=== PATIENT | male | born 1935 | race Caucasian/White ===

== ENCOUNTER 2022-03-01 08:33 | Inpatient (IN) | payer MEDICARE ==
[~2022-03-01] VITALS: Ht 167.6 cm; Wt 74.8 kg
[2022-03-01] VITALS (10 sets, daily range): BP systolic 82–112; BP diastolic 34–46
[2022-03-01] MEDS ORDERED: SUCCINYLCHOLINE CHLORIDE 20 MG/ML 10 ML VIAL ONE (08:37)
[2022-03-01] MEDS ORDERED: SODIUM CHLORIDE 0.9% 1,000 ML IV ONE ×2 (08:45→14:45)
[2022-03-01] MEDS ORDERED: MIDAZOLAM HCL 100 MG in SODIUM CHLORIDE 0.9% 180 ML IV PRN (09:00)
[2022-03-01] MEDS ORDERED: FentaNYL CIT 1000MCG/0.9% NACL 100 ML IV PRN (09:00)
[2022-03-01] MEDS ORDERED: LEVOFLOXACIN 500 MG/D5% WATER 100 ML IV ONE (09:15)
[2022-03-01] MEDS ORDERED: PIPERACILLIN/TAZO 3.375 GM/D5W 50 ML IV ONE (09:15)
[2022-03-01 09:22] LABS: ABG BASE EXCESS 8.8 mmol/L (-2.0-3.0); ABG CARBOXYHEMOGLOBIN 1.7 % (0.0-1.5); ABG HCO3 31.7 mmol/L (22.0-26.0); ABG METHEMOGLOBIN 0.3 % (0.0-1.5); ABG OXYGEN CONTENT 9.5 mL/dL (15.0-23.0); ABG OXYGEN SATURATION 98.6 % (95.0-98.0); ABG OXYHEMOGLOBIN 96.6 % (94.0-100.0); ABG PCO2 63 mmHg (35-45); ABG PH 7.352 (7.35-7.450); PO2, ARTERIAL BG 111.6 mmHg (71.0-79.0); SOURCE, BLOOD GAS ARTERIAL; TEMPERATURE, FAHRENHEIT, BG 98.5 FAHREN (96.0-98.6)
[2022-03-01 09:23] LABS: ABG A-A DIFF O2 538.4 mmHg (10-20.0); ABG TOTAL HEMOGLOBIN 6.8 G/dL (12.0-18.0); O2 DEVICE,BLOOD GAS VENTILATOR (ROOM AIR); SITE, BLOOD GAS RT RADIAL; VT, ABG 450 ml
[2022-03-01 09:24] LABS: PEEP,BG 5 cm H2O; SPONTANEOUS VT, BG 516 ml
[2022-03-01 09:33] LABS: COVID AG,FIA SOURCE NASOPHARYNGEAL
[2022-03-01 09:39] LABS: MEAN CORPUSCULAR HEMOGLOBIN 32.6 pg (26.0-34.0); MEAN CORPUSCULAR HGB CONC 32.5 G/dL (31.0-37.0); MEAN CORPUSCULAR VOLUME 100 fL (80-100); RED BLOOD CELL COUNT(AUTO) 1.96 MIL/uL (4.50-5.90); RED CELL DISTRIBUTION WIDTH 20.8 % (11.5-14.5)
[2022-03-01 09:43] LABS: ANION GAP 3 mmol/L (8-16); CALCIUM, TOTAL 7.5 mg/dL (8.8-10.5); CARBON DIOXIDE 37 mmol/L (22-29); CHLORIDE 95 mmol/L (98-107); CREATININE 0.96 mg/dL (0.60-1.30); GLUCOSE,RANDOM 200 mg/dL (70-110); POTASSIUM 4.2 mmol/L (3.5-5.1); SODIUM SERUM 135 mmol/L (136-145); UREA NITROGEN, BLOOD 39 mg/dL (7-18)
[2022-03-01 09:44] LABS: GLOMERULAR FILTR. RATE CALC > 60 mL/min (>60)
[2022-03-01 09:48] LABS: HEMATOCRIT 19.6 % (41-53); HEMOGLOBIN 6.4 g/dL (13.5-17.5)
[2022-03-01 09:49] LABS: ALANINE AMINOTRANSFERASE 20 U/L (12-78); ALBUMIN 1.5 g/dL (3.4-5.0); ALKALINE PHOSPHATASE 67 U/L (46-116); ASPARTATE AMINOTRANSFERASE 22 U/L (15-37); BILIRUBIN,TOTAL 0.7 mg/dL (0.1-1.0)
[2022-03-01 09:52] LABS: LACTIC ACID 1.1 mmol/L (0.4-2.0)
[2022-03-01 09:59] LABS: B-TYPE NATRIURETIC PEPTIDE 592 pg/mL (0-100)
[2022-03-01 10:31] LABS: APPEARANCE,URINE CLEAR (CLEAR); BILIRUBIN,URINE NEGATIVE (NEGATIVE); GLUCOSE, URINE (UA) NEGATIVE (NEGATIVE); KETONES,URINE NEGATIVE (NEGATIVE); LEUKOCYTE ESTERASE ,URINE NEGATIVE (NEGATIVE); NITRATE,URINE NEGATIVE (NEGATIVE); OCCULT BLOOD,URINE NEGATIVE (NEGATIVE); PROTEIN,URINE TRACE mg/dL (NEGATIVE); SPECIFIC GRAVITIY, URINE 1.009 (1.003-1.030); UROBILINOGEN,URINE <=1.0 mg/dL (<=1.0)
[2022-03-01 10:55] LABS: INR 1.1 (0.9-1.1); PROTHROMBIN TIME 11.2 SEC (9.4-11.6)
[2022-03-01] MEDS ORDERED: PHENYLEPHRINE 200 MG/D5%-WATER 250 ML IV PRN (14:00)
[2022-03-01] MEDS ORDERED: SODIUM CHLORIDE 0.9% 500 ML IV ONE ×2 (14:11→16:34)
[2022-03-01 14:19] LABS: PATHOLOGY REVIEW, DIFF YES; PLATELET COUNT (AUTO) 64 K/uL (150-450)
[2022-03-01 14:28] LABS: BAND NEUTROPHILS % (MANUAL) 0 % (0-5)
[2022-03-01] MEDS ORDERED: NOREPINEPHRINE 8 MG/D5%-WATER 250 ML IV ONE (14:28)
[2022-03-01] MEDS: NOREPINEPHRINE 8 MG/D5%-WATER 250 ML IV PRN (14:41)
[2022-03-01] MEDS ORDERED: ZOLPIDEM TARTRATE 5 MG TABLET PO PRN (14:45)
[2022-03-01] MEDS ORDERED: MAGNESIUM HYDROXIDE SUSPENSION 30 ML UDCUP PO PRN (14:45)
[2022-03-01] MEDS ORDERED: BISACODYL 10 MG RECTAL RECTAL SUPPOSITORY PR PRN (14:45)
[2022-03-01] MEDS ORDERED: ONDANSETRON HCL 4 MG/2 ML VIAL IVP PRN (14:45)
[2022-03-01] MEDS: PIPERACILLIN/TAZO 3.375 GM/D5W 50 ML IV SCH ×2 (17:39→21:54)
[2022-03-01] MEDS: HEPARIN SODIUM,PORCINE 5,000 UNITS/ML VIAL SQ SCH (17:41)
[2022-03-01] MEDS ORDERED: VASOPRESSIN 40 UNITS in DEXTROSE 5%-WATER 98 ML IV PRN (21:00)
[2022-03-01] MEDS: DOCUSATE SODIUM 100 MG CAPSULE PO SCH (21:00)
[2022-03-01] MEDS ORDERED: SODIUM CHLORIDE 0.9% 250 ML IV ONE (21:48)
[2022-03-02] VITALS: BP 123/36
[2022-03-02] MEDS: NOREPINEPHRINE 8 MG/D5%-WATER 250 ML IV PRN ×3 (00:21→19:19)
[2022-03-02 04:00] VITALS: BP 114/38
[2022-03-02] MEDS: PIPERACILLIN/TAZO 3.375 GM/D5W 50 ML IV SCH ×4 (04:35→21:12)
[2022-03-02 06:13] LABS: ANION GAP 5 mmol/L (8-16); CALCIUM, TOTAL 7.4 mg/dL (8.8-10.5); CARBON DIOXIDE 34 mmol/L (22-29); CHLORIDE 98 mmol/L (98-107); CREATININE 0.96 mg/dL (0.60-1.30); GLUCOSE,RANDOM 177 mg/dL (70-110); POTASSIUM 3.7 mmol/L (3.5-5.1); SODIUM SERUM 137 mmol/L (136-145); UREA NITROGEN, BLOOD 38 mg/dL (7-18)
[2022-03-02 06:25] LABS: HEMATOCRIT 24.2 % (41-53); HEMOGLOBIN 7.8 g/dL (13.5-17.5); MEAN CORPUSCULAR HEMOGLOBIN 31.2 pg (26.0-34.0); MEAN CORPUSCULAR HGB CONC 32.2 G/dL (31.0-37.0); MEAN CORPUSCULAR VOLUME 97 fL (80-100); PLATELET COUNT (AUTO) 66 K/uL (150-450); RED CELL DISTRIBUTION WIDTH 19.4 % (11.5-14.5)
[2022-03-02 06:26] LABS: GLOMERULAR FILTR. RATE CALC > 60 mL/min (>60)
[2022-03-02 08:00] VITALS: BP 116/36
[2022-03-02] MEDS: HEPARIN SODIUM,PORCINE 5,000 UNITS/ML VIAL SQ SCH ×3 (08:00→15:42)
[2022-03-02] MEDS: DOCUSATE SODIUM 100 MG CAPSULE PO SCH ×2 (08:17→21:11)
[2022-03-02] MEDS: PANTOPRAZOLE SODIUM 40 MG DR TABLET PO SCH (08:17)
[2022-03-02 11:06] LABS: BLASTS, MANUAL % 90 (0-0); LYMPHOCYTES % (MANUAL) 4 % (22-44); SEGMENTED NEUTROPHILS % 6 % (40-70)
[2022-03-02] MEDS ORDERED: SODIUM CHLORIDE 0.9% 250 ML IV ONE (11:12)
[2022-03-02 11:25] LABS: BAND NEUTROPHILS % (MANUAL) 4 % (0-5); BLASTS, MANUAL % 79 (0-0); LYMPHOCYTES % (MANUAL) 7 % (22-44); MONOCYTES % (MANUAL) 1 % (2-9); MYELOCYTES % 2 % (0-0); SEGMENTED NEUTROPHILS % 7 % (40-70)
[2022-03-02 11:26] LABS: WBC MORPHOLOGY TOXIC GRANULATION
[2022-03-02 12:00] VITALS: BP 110/40
[2022-03-02 16:00] VITALS: BP 106/46
[2022-03-02 16:13] LABS: SPECIMENTYPE,BODY FLUID PLEURAL
[2022-03-02 18:49] LABS: APPEARANCE,SPUN,BODY FLUID CLEAR (CLEAR); APPEARANCE,UNSPUN,BODY FLUID SLIGHTLY CLOUDY (CLEAR); COLOR,BODY FLUID YELLOW (LT YELLOW); TOTAL VOLUME,BODY FLUID 25 mL
[2022-03-02 18:50] LABS: BODY FLUID RBC 813.8 /cu. mm.; WBC, BODY FLUID 23.8 /cu. mm.
[2022-03-02] MEDS ORDERED: MIDAZOLAM HCL 100 MG in SODIUM CHLORIDE 0.9% 180 ML IV PRN (19:00)
[2022-03-02] MEDS: FentaNYL CIT 1000MCG/0.9% NACL 100 ML IV PRN (19:19)
[2022-03-03] VITALS: BP 107/48
[2022-03-03] MEDS: HEPARIN SODIUM,PORCINE 5,000 UNITS/ML VIAL SQ SCH ×3 (00:15→16:00)
[2022-03-03 04:00] VITALS: BP 106/44
[2022-03-03] MEDS: PIPERACILLIN/TAZO 3.375 GM/D5W 50 ML IV SCH ×4 (04:49→22:09)
[2022-03-03] MEDS: NOREPINEPHRINE 8 MG/D5%-WATER 250 ML IV PRN ×2 (04:56→14:55)
[2022-03-03 06:09] LABS: CALCIUM, TOTAL 7.7 mg/dL (8.8-10.5); CREATININE 1.25 mg/dL (0.60-1.30); POTASSIUM 3.8 mmol/L (3.5-5.1)
[2022-03-03 06:11] LABS: HEMOGLOBIN 8.1 g/dL (13.5-17.5); MEAN CORPUSCULAR HEMOGLOBIN 31.7 pg (26.0-34.0); MEAN CORPUSCULAR HGB CONC 32.4 G/dL (31.0-37.0); MEAN CORPUSCULAR VOLUME 98 fL (80-100); PLATELET COUNT (AUTO) 64 K/uL (150-450); RED BLOOD CELL COUNT(AUTO) 2.56 MIL/uL (4.50-5.90); RED CELL DISTRIBUTION WIDTH 20.1 % (11.5-14.5)
[2022-03-03 07:53] LABS: BAND NEUTROPHILS % (MANUAL) 1 % (0-5); BLASTS, MANUAL % 84 (0-0); EOSINOPHILS % (MANUAL) 2 % (1-6); LYMPHOCYTES % (MANUAL) 7 % (22-44); SEGMENTED NEUTROPHILS % 6 % (40-70)
[2022-03-03 08:00] VITALS: BP 105/59
[2022-03-03] MEDS: PANTOPRAZOLE SODIUM 40 MG DR TABLET PO SCH (08:02)
[2022-03-03] MEDS: DOCUSATE SODIUM 100 MG CAPSULE PO SCH ×2 (08:02→20:24)
[2022-03-03] MEDS: ETHYL ALCOHOL 62% ANTISEPTIC NASAL SANITIZER 0.6 ML AMPUL NASAL SCH ×2 (08:02→20:24)
[2022-03-03 12:00] VITALS: BP 103/50
[2022-03-03] MEDS: ALBUMIN HUMAN 25%-12.5GM/50ML 50 ML IV SCH ×2 (12:19→17:27)
[2022-03-03] MEDS ORDERED: DEXTROSE 50%-WATER 25 GM/50 ML SYRINGE IVP PRN (12:45)
[2022-03-03 13:52] LABS: LYMPHOCYTES,BODY FLUID 72 %; MONOCYTES,BODY FLUID 3 %; NEUTROPHILS,BODY FLUID 3 %
[2022-03-03 13:53] LABS: BASOPHILS,BODY FLUID 0 %; EOSINOPHILS,BF (ANAL) 0 %
[2022-03-03 13:54] LABS: OTHER CELLS,BODY FLUID 22
[2022-03-03 16:00] VITALS: BP 103/44
[2022-03-03] MEDS: INSULIN LISPRO 100 UNITS/ML SQ PRN (17:23)
[2022-03-03 22:07] LABS: GLUCOMETER DEV NAME(LOC) AHU.; GLUCOSE,POINT OF CARE 244 MG/DL (70-110)
[2022-03-03 22:07] LABS: GLUCOMETER DEV NAME(LOC) AHU.; GLUCOSE,POINT OF CARE 247 MG/DL (70-110)
[2022-03-03] MEDS ORDERED: SODIUM CHLORIDE 0.9% 250 ML IV ONE (22:08)
[2022-03-04] MEDS: INSULIN LISPRO 100 UNITS/ML SQ PRN ×4 (00:01→17:49)
[2022-03-04 00:08] VITALS: BP 113/51
[2022-03-04] MEDS: ALBUMIN HUMAN 25%-12.5GM/50ML 50 ML IV SCH ×4 (00:20→17:47)
[2022-03-04] MEDS: NOREPINEPHRINE 8 MG/D5%-WATER 250 ML IV PRN ×2 (03:16→13:50)
[2022-03-04 03:46] LABS: GLUCOMETER DEV NAME(LOC) AHU.; GLUCOSE,POINT OF CARE 219 MG/DL (70-110)
[2022-03-04 04:00] VITALS: BP 106/47
[2022-03-04] MEDS: PIPERACILLIN/TAZO 3.375 GM/D5W 50 ML IV SCH ×4 (04:50→21:07)
[2022-03-04] MEDS: FentaNYL CIT 1000MCG/0.9% NACL 100 ML IV PRN (04:58)
[2022-03-04 05:52] LABS: HEMATOCRIT 22.2 % (41-53); MEAN CORPUSCULAR HEMOGLOBIN 31.1 pg (26.0-34.0); MEAN CORPUSCULAR HGB CONC 31.6 G/dL (31.0-37.0); MEAN CORPUSCULAR VOLUME 99 fL (80-100); PLATELET COUNT (AUTO) 43 K/uL (150-450); RED BLOOD CELL COUNT(AUTO) 2.26 MIL/uL (4.50-5.90); RED CELL DISTRIBUTION WIDTH 19.9 % (11.5-14.5)
[2022-03-04 06:05] LABS: CREATININE 1.22 mg/dL (0.60-1.30); MAGNESIUM 2.2 mg/dL (1.80-2.40); PHOSPHORUS 3.9 mg/dL (2.5-4.9); POTASSIUM 3.6 mmol/L (3.5-5.1)
[2022-03-04 07:14] LABS: BAND NEUTROPHILS % (MANUAL) 2 % (0-5); BLASTS, MANUAL % 81 (0-0); EOSINOPHILS % (MANUAL) 1 % (1-6); LYMPHOCYTES % (MANUAL) 8 % (22-44); MONOCYTES % (MANUAL) 1 % (2-9); SEGMENTED NEUTROPHILS % 7 % (40-70); WBC MORPHOLOGY TOXIC GRANULATION
[2022-03-04 08:00] VITALS: BP 113/51
[2022-03-04] MEDS: HEPARIN SODIUM,PORCINE 5,000 UNITS/ML VIAL SQ SCH ×3 (08:00→09:05)
[2022-03-04] MEDS: ETHYL ALCOHOL 62% ANTISEPTIC NASAL SANITIZER 0.6 ML AMPUL NASAL SCH ×2 (09:05→21:05)
[2022-03-04] MEDS: DOCUSATE SODIUM 100 MG CAPSULE PO SCH ×2 (09:06→21:05)
[2022-03-04] MEDS: PANTOPRAZOLE SODIUM 40 MG DR TABLET PO SCH (09:06)
[2022-03-04 12:00] VITALS: BP 113/51
[2022-03-04 16:00] VITALS: BP 104/43
[2022-03-04 20:00] VITALS: BP 105/44
[2022-03-05] VITALS (10 sets, daily range): BP systolic 97–110; BP diastolic 35–51
[2022-03-05] MEDS: ALBUMIN HUMAN 25%-12.5GM/50ML 50 ML IV SCH (00:45)
[2022-03-05] MEDS: INSULIN LISPRO 100 UNITS/ML SQ PRN ×4 (00:48→18:31)
[2022-03-05] MEDS ORDERED: SODIUM CHLORIDE 0.9% 250 ML IV ONE ×3 (04:07→22:59)
[2022-03-05] MEDS: PIPERACILLIN/TAZO 3.375 GM/D5W 50 ML IV SCH ×4 (04:11→20:56)
[2022-03-05] MEDS: DOCUSATE SODIUM 100 MG CAPSULE PO SCH ×2 (09:05→20:56)
[2022-03-05] MEDS: ETHYL ALCOHOL 62% ANTISEPTIC NASAL SANITIZER 0.6 ML AMPUL NASAL SCH ×2 (09:05→20:55)
[2022-03-05] MEDS: PANTOPRAZOLE SODIUM 40 MG DR TABLET PO SCH (09:06)
[2022-03-05 15:42] LABS: MEAN CORPUSCULAR HEMOGLOBIN 31.6 pg (26.0-34.0); MEAN CORPUSCULAR VOLUME 99 fL (80-100); PLATELET COUNT (AUTO) 28 K/uL (150-450); RED CELL DISTRIBUTION WIDTH 19.8 % (11.5-14.5)
[2022-03-05 15:45] LABS: ANION GAP 1 mmol/L (8-16); CALCIUM, TOTAL 8.1 mg/dL (8.8-10.5); CARBON DIOXIDE 37 mmol/L (22-29); CHLORIDE 97 mmol/L (98-107); CREATININE 1.14 mg/dL (0.60-1.30); GLUCOSE,RANDOM 214 mg/dL (70-110); POTASSIUM 3.4 mmol/L (3.5-5.1); SODIUM SERUM 135 mmol/L (136-145); UREA NITROGEN, BLOOD 38 mg/dL (7-18)
[2022-03-05 15:46] LABS: GLOMERULAR FILTR. RATE CALC > 60 mL/min (>60)
[2022-03-05 15:49] LABS: HEMOGLOBIN 6.6 g/dL (13.5-17.5)
[2022-03-05 15:50] LABS: HEMATOCRIT 20.7 % (41-53)
[2022-03-05 16:18] LABS: BAND NEUTROPHILS % (MANUAL) 1 % (0-5); BLASTS, MANUAL % 86 (0-0); LYMPHOCYTES % (MANUAL) 4 % (22-44); MONOCYTES % (MANUAL) 1 % (2-9); SEGMENTED NEUTROPHILS % 8 % (40-70)
[2022-03-05] MEDS: NOREPINEPHRINE 8 MG/D5%-WATER 250 ML IV PRN (18:50)
[2022-03-06] VITALS (7 sets, daily range): BP systolic 102–111; BP diastolic 46–57
[2022-03-06] MEDS: INSULIN LISPRO 100 UNITS/ML SQ PRN ×5 (01:26→23:40)
[2022-03-06] MEDS: PIPERACILLIN/TAZO 3.375 GM/D5W 50 ML IV SCH ×4 (05:22→20:48)
[2022-03-06 05:25] LABS: HEMATOCRIT 24.9 % (41-53); HEMOGLOBIN 8.2 g/dL (13.5-17.5); MEAN CORPUSCULAR HEMOGLOBIN 31.5 pg (26.0-34.0); MEAN CORPUSCULAR HGB CONC 32.8 G/dL (31.0-37.0); MEAN CORPUSCULAR VOLUME 96 fL (80-100); PLATELET COUNT (AUTO) 28 K/uL (150-450); RED BLOOD CELL COUNT(AUTO) 2.59 MIL/uL (4.50-5.90)
[2022-03-06] MEDS ORDERED: SODIUM CHLORIDE 0.9% 250 ML IV ONE ×2 (05:26→21:35)
[2022-03-06 05:51] LABS: BAND NEUTROPHILS % (MANUAL) 1 % (0-5); BLASTS, MANUAL % 83 (0-0); LYMPHOCYTES % (MANUAL) 6 % (22-44); MONOCYTES % (MANUAL) 1 % (2-9); SEGMENTED NEUTROPHILS % 9 % (40-70)
[2022-03-06] MEDS: DOCUSATE SODIUM 100 MG CAPSULE PO SCH ×2 (08:22→20:46)
[2022-03-06] MEDS: PANTOPRAZOLE SODIUM 40 MG/VIAL IVP SCH (09:50)
[2022-03-06] MEDS: ETHYL ALCOHOL 62% ANTISEPTIC NASAL SANITIZER 0.6 ML AMPUL NASAL SCH ×2 (09:50→20:45)
[2022-03-06 13:58] LABS: ABG BASE EXCESS 11.8 mmol/L (-2.0-3.0); ABG CARBOXYHEMOGLOBIN 1.6 % (0.0-1.5); ABG HCO3 34.4 mmol/L (22.0-26.0); ABG METHEMOGLOBIN 0.3 % (0.0-1.5); ABG OXYGEN CONTENT 11.3 mL/dL (15.0-23.0); ABG OXYHEMOGLOBIN 96.1 % (94.0-100.0); ABG PCO2 49 mmHg (35-45); ABG PH 7.479 (7.35-7.450); ABG TOTAL HEMOGLOBIN 8.2 G/dL (12.0-18.0); PO2, ARTERIAL BG 101.8 mmHg (71.0-79.0); SOURCE, BLOOD GAS ARTERIAL; TEMPERATURE, FAHRENHEIT, BG 98.2 FAHREN (96.0-98.6)
[2022-03-06 13:59] LABS: ABG A-A DIFF O2 91.4 mmHg (10-20.0); CPAP, BG 5 cm H2O; O2 DEVICE,BLOOD GAS VENTILATOR (ROOM AIR); PRESSURE SUPPORT, BG 8 cm H2O; SITE, BLOOD GAS LFT RADIAL; SPONTANEOUS VT, BG 443 ml; VENT MODE, BG CPAP (ROOM AIR)
[2022-03-07] VITALS (7 sets, daily range): BP systolic 84–117; BP diastolic 44–59
[2022-03-07] MEDS: PIPERACILLIN/TAZO 3.375 GM/D5W 50 ML IV SCH ×4 (03:55→21:36)
[2022-03-07] MEDS: INSULIN LISPRO 100 UNITS/ML SQ PRN ×3 (06:26→17:13)
[2022-03-07] MEDS: DOCUSATE SODIUM 100 MG CAPSULE PO SCH ×2 (09:00→21:00)
[2022-03-07] MEDS: PANTOPRAZOLE SODIUM 40 MG/VIAL IVP SCH (09:58)
[2022-03-07] MEDS: ETHYL ALCOHOL 62% ANTISEPTIC NASAL SANITIZER 0.6 ML AMPUL NASAL SCH ×2 (09:59→21:36)
[2022-03-07] MEDS: HYDROCODONE/ACETAMINOPHEN 5-325 MG TABLET PO PRN (11:08)
[2022-03-07 12:58] LABS: ABG BASE EXCESS 10.5 mmol/L (-2.0-3.0); ABG CARBOXYHEMOGLOBIN 0.8 % (0.0-1.5); ABG HCO3 33.3 mmol/L (22.0-26.0); ABG METHEMOGLOBIN 0.3 % (0.0-1.5); ABG OXYGEN CONTENT 11.3 mL/dL (15.0-23.0); ABG OXYGEN SATURATION 97.8 % (95.0-98.0); ABG OXYHEMOGLOBIN 96.7 % (94.0-100.0); ABG PCO2 46 mmHg (35-45); ABG PH 7.486 (7.35-7.450); ABG TOTAL HEMOGLOBIN 8.2 G/dL (12.0-18.0); PO2, ARTERIAL BG 98.8 mmHg (71.0-79.0); SOURCE, BLOOD GAS ARTERIAL
[2022-03-07 12:59] LABS: CPAP, BG 5 cm H2O; O2 DEVICE,BLOOD GAS VENTILATOR (ROOM AIR); PRESSURE SUPPORT, BG 5 cm H2O; SITE, BLOOD GAS LFT RADIAL; SPONTANEOUS VT, BG 430 ml; VENT MODE, BG Press. Support Vent. (ROOM AIR)
[2022-03-08] VITALS: BP 107/35
[2022-03-08] MEDS: INSULIN LISPRO 100 UNITS/ML SQ PRN ×4 (02:32→17:32)
[2022-03-08 04:00] VITALS: BP 117/53
[2022-03-08] MEDS: PIPERACILLIN/TAZO 3.375 GM/D5W 50 ML IV SCH ×4 (04:26→21:37)
[2022-03-08 06:12] LABS: ANION GAP 7 mmol/L (8-16); CALCIUM, TOTAL 7.3 mg/dL (8.8-10.5); CARBON DIOXIDE 34 mmol/L (22-29); CHLORIDE 98 mmol/L (98-107); CREATININE 1.03 mg/dL (0.60-1.30); GLUCOSE,RANDOM 244 mg/dL (70-110); SODIUM SERUM 139 mmol/L (136-145); UREA NITROGEN, BLOOD 42 mg/dL (7-18)
[2022-03-08 06:14] LABS: RED CELL DISTRIBUTION WIDTH 18.7 % (11.5-14.5)
[2022-03-08 06:23] LABS: GLOMERULAR FILTR. RATE CALC > 60 mL/min (>60)
[2022-03-08 06:24] LABS: MEAN CORPUSCULAR HEMOGLOBIN 32.3 pg (26.0-34.0); MEAN CORPUSCULAR HGB CONC 33.7 G/dL (31.0-37.0); MEAN CORPUSCULAR VOLUME 96 fL (80-100); PLATELET COUNT (AUTO) 39 K/uL (150-450); RED BLOOD CELL COUNT(AUTO) 2.18 MIL/uL (4.50-5.90)
[2022-03-08 06:26] LABS: POTASSIUM 2.7 mmol/L (3.5-5.1)
[2022-03-08 06:28] LABS: HEMATOCRIT 21.1 % (41-53)
[2022-03-08 07:04] LABS: BAND NEUTROPHILS % (MANUAL) 1 % (0-5); BLASTS, MANUAL % 57 (0-0); LYMPHOCYTES % (MANUAL) 30 % (22-44); MONOCYTES % (MANUAL) 2 % (2-9); SEGMENTED NEUTROPHILS % 10 % (40-70)
[2022-03-08] MEDS ORDERED: POTASSIUM CHLORIDE 10% 40 MEQ/30 ML LIQUID UDCUP JT ONE (07:15)
[2022-03-08 08:00] VITALS: BP 114/45
[2022-03-08] MEDS: DOCUSATE SODIUM 100 MG CAPSULE PO SCH ×2 (08:46→21:00)
[2022-03-08] MEDS: ETHYL ALCOHOL 62% ANTISEPTIC NASAL SANITIZER 0.6 ML AMPUL NASAL SCH ×2 (08:46→21:37)
[2022-03-08] MEDS: PANTOPRAZOLE SODIUM 40 MG/VIAL IVP SCH (09:34)
[2022-03-08 12:00] VITALS: BP 113/49
[2022-03-08 16:00] VITALS: BP 120/48
[2022-03-08 20:00] VITALS: BP 101/53
[2022-03-08] MEDS ORDERED: SODIUM CHLORIDE 0.9% 250 ML IV ONE (21:38)
[2022-03-09] VITALS (12 sets, daily range): BP systolic 97–124; BP diastolic 43–60
[2022-03-09] MEDS: INSULIN LISPRO 100 UNITS/ML SQ PRN ×4 (01:12→19:56)
[2022-03-09] MEDS: PIPERACILLIN/TAZO 3.375 GM/D5W 50 ML IV SCH ×4 (04:31→21:23)
[2022-03-09 06:35] LABS: MEAN CORPUSCULAR HGB CONC 32.7 G/dL (31.0-37.0); MEAN CORPUSCULAR VOLUME 98 fL (80-100); PLATELET COUNT (AUTO) 51 K/uL (150-450); RED BLOOD CELL COUNT(AUTO) 2.05 MIL/uL (4.50-5.90); RED CELL DISTRIBUTION WIDTH 19.1 % (11.5-14.5)
[2022-03-09 06:45] LABS: ANION GAP 5 mmol/L (8-16); CALCIUM, TOTAL 7.7 mg/dL (8.8-10.5); CARBON DIOXIDE 33 mmol/L (22-29); CHLORIDE 103 mmol/L (98-107); CREATININE 1.09 mg/dL (0.60-1.30); GLOMERULAR FILTR. RATE CALC > 60 mL/min (>60); GLUCOSE,RANDOM 255 mg/dL (70-110); POTASSIUM 3.6 mmol/L (3.5-5.1); SODIUM SERUM 141 mmol/L (136-145); UREA NITROGEN, BLOOD 46 mg/dL (7-18)
[2022-03-09 06:53] LABS: HEMOGLOBIN 6.5 g/dL (13.5-17.5)
[2022-03-09 07:52] LABS: BAND NEUTROPHILS % (MANUAL) 1 % (0-5); BLASTS, MANUAL % 59 (0-0); LYMPHOCYTES % (MANUAL) 26 % (22-44); MONOCYTES % (MANUAL) 5 % (2-9); SEGMENTED NEUTROPHILS % 9 % (40-70)
[2022-03-09 07:55] LABS: WBC MORPHOLOGY TOXIC GRANULATION
[2022-03-09] MEDS: DOCUSATE SODIUM 100 MG CAPSULE PO SCH ×2 (08:13→21:00)
[2022-03-09] MEDS: ETHYL ALCOHOL 62% ANTISEPTIC NASAL SANITIZER 0.6 ML AMPUL NASAL SCH ×2 (08:20→21:22)
[2022-03-09] MEDS: PANTOPRAZOLE SODIUM 40 MG/VIAL IVP SCH (08:20)
[2022-03-09] MEDS ORDERED: SODIUM CHLORIDE 0.9% 1,000 ML ONE (09:55)
[2022-03-09 18:30] LABS: SITE, BLOOD GAS RT RADIAL; TEMPERATURE, FAHRENHEIT, BG 98.3 FAHREN (96.0-98.6)
[2022-03-09 18:31] LABS: ABG PCO2 40 mmHg (35-45); ABG PH 7.493 (7.35-7.450); PO2, ARTERIAL BG 98.4 mmHg (71.0-79.0)
[2022-03-09 18:32] LABS: ABG BASE EXCESS 6.8 mmol/L (-2.0-3.0); ABG CARBOXYHEMOGLOBIN 1.1 % (0.0-1.5); ABG HCO3 30.2 mmol/L (22.0-26.0); ABG METHEMOGLOBIN 0.3 % (0.0-1.5); ABG OXYHEMOGLOBIN 96.3 % (94.0-100.0); ABG TOTAL HEMOGLOBIN 8.6 G/dL (12.0-18.0)
[2022-03-09 18:33] LABS: ABG A-A DIFF O2 104.6 mmHg (10-20.0); ABG OXYGEN CONTENT 11.8 mL/dL (15.0-23.0); ABG OXYGEN SATURATION 97.7 % (95.0-98.0)
[2022-03-09 18:34] LABS: O2 DEVICE,BLOOD GAS VENTILATOR (ROOM AIR)
[2022-03-09 18:35] LABS: PRESSURE SUPPORT, BG 8 cm H2O; SPONTANEOUS VT, BG 398 ml; VENT MODE, BG Press. Support Vent. (ROOM AIR)
[2022-03-09 18:36] LABS: SOURCE, BLOOD GAS ARTERIAL
[2022-03-09 18:38] LABS: CPAP, BG 0 cm H2O
[2022-03-09] MEDS: ALBUTEROL SULFATE 2.5 MG/0.5 ML NEB SOLUTION NEB PRN (20:05)
[2022-03-09] MEDS: IPRATROPIUM BROMIDE 0.5 MG/2.5 ML NEB SOLUTION NEB PRN (20:05)
[2022-03-09] MEDS: ACETYLCYSTEINE 10% 100 MG/ML 4 ML NEB SOLUTION NEB SCH (20:06)
[2022-03-10] VITALS: BP 116/50
[2022-03-10] MEDS: INSULIN LISPRO 100 UNITS/ML SQ PRN ×4 (00:19→18:16)
[2022-03-10] MEDS: MORPHINE SULFATE 2 MG/ML SYRINGE IVP PRN ×4 (01:12→22:14)
[2022-03-10] MEDS: ALBUTEROL SULFATE 2.5 MG/0.5 ML NEB SOLUTION NEB PRN ×4 (03:04→19:23)
[2022-03-10] MEDS: ACETYLCYSTEINE 10% 100 MG/ML 4 ML NEB SOLUTION NEB SCH ×4 (03:04→19:23)
[2022-03-10 04:00] VITALS: BP 129/67
[2022-03-10] MEDS: PIPERACILLIN/TAZO 3.375 GM/D5W 50 ML IV SCH ×4 (04:15→22:15)
[2022-03-10 06:06] LABS: ANION GAP 5 mmol/L (8-16); CALCIUM, TOTAL 7.8 mg/dL (8.8-10.5); CARBON DIOXIDE 34 mmol/L (22-29); CHLORIDE 105 mmol/L (98-107); CREATININE 0.98 mg/dL (0.60-1.30); GLUCOSE,RANDOM 207 mg/dL (70-110); POTASSIUM 3.3 mmol/L (3.5-5.1); SODIUM SERUM 144 mmol/L (136-145); UREA NITROGEN, BLOOD 48 mg/dL (7-18)
[2022-03-10 06:19] LABS: HEMATOCRIT 25.3 % (41-53); HEMOGLOBIN 8.3 g/dL (13.5-17.5); MEAN CORPUSCULAR VOLUME 94 fL (80-100); PLATELET COUNT (AUTO) 61 K/uL (150-450); RED BLOOD CELL COUNT(AUTO) 2.69 MIL/uL (4.50-5.90)
[2022-03-10 06:23] LABS: GLOMERULAR FILTR. RATE CALC > 60 mL/min (>60)
[2022-03-10] MEDS: ETHYL ALCOHOL 62% ANTISEPTIC NASAL SANITIZER 0.6 ML AMPUL NASAL SCH ×2 (07:55→22:14)
[2022-03-10] MEDS: PANTOPRAZOLE SODIUM 40 MG/VIAL IVP SCH (07:55)
[2022-03-10] MEDS: DOCUSATE SODIUM 100 MG CAPSULE PO SCH ×2 (07:55→21:00)
[2022-03-10 08:00] VITALS: BP 118/62
[2022-03-10 08:28] LABS: BAND NEUTROPHILS % (MANUAL) 0 % (0-5)
[2022-03-10 08:31] LABS: BLASTS, MANUAL % 75 (0-0); EOSINOPHILS % (MANUAL) 1 % (1-6); LYMPHOCYTES % (MANUAL) 13 % (22-44); MONOCYTES % (MANUAL) 1 % (2-9); SEGMENTED NEUTROPHILS % 10 % (40-70)
[2022-03-10 12:00] VITALS: BP 121/58
[2022-03-10 12:58] LABS: ABG BASE EXCESS 8.6 mmol/L (-2.0-3.0); ABG CARBOXYHEMOGLOBIN 0.6 % (0.0-1.5); ABG HCO3 31.7 mmol/L (22.0-26.0); ABG METHEMOGLOBIN 0.3 % (0.0-1.5); ABG OXYGEN SATURATION 98.1 % (95.0-98.0); ABG OXYHEMOGLOBIN 97.2 % (94.0-100.0); ABG PCO2 42 mmHg (35-45); ABG PH 7.498 (7.35-7.450); ABG TOTAL HEMOGLOBIN 8.6 G/dL (12.0-18.0); PO2, ARTERIAL BG 107.4 mmHg (71.0-79.0); SOURCE, BLOOD GAS ARTERIAL
[2022-03-10 12:59] LABS: ABG A-A DIFF O2 107.4 mmHg (10-20.0); CPAP, BG 5 cm H2O; O2 DEVICE,BLOOD GAS VENTILATOR (ROOM AIR); PRESSURE SUPPORT, BG 8 cm H2O; SITE, BLOOD GAS RT BRACHIAL; SPONTANEOUS VT, BG 329 ml; VENT MODE, BG CPAP (ROOM AIR)
[2022-03-10] MEDS: HYDROCODONE/ACETAMINOPHEN 5-325 MG TABLET PO PRN (15:00)
[2022-03-10 16:00] VITALS: BP 99/51
[2022-03-10] MEDS ORDERED: POTASSIUM CHLORIDE 20 MEQ ER TABLET PO PRN (19:15)
[2022-03-10 20:00] VITALS: BP 109/51
[2022-03-10] MEDS: POTASSIUM CHL 10 MEQ/WATER 50 ML IV PRN ×2 (22:14→23:35)
[2022-03-11] VITALS: BP 117/66
[2022-03-11] MEDS: POTASSIUM CHL 10 MEQ/WATER 50 ML IV PRN (01:16)
[2022-03-11] MEDS: ACETYLCYSTEINE 10% 100 MG/ML 4 ML NEB SOLUTION NEB SCH ×4 (01:53→20:19)
[2022-03-11] MEDS: ALBUTEROL SULFATE 2.5 MG/0.5 ML NEB SOLUTION NEB PRN ×3 (01:53→20:07)
[2022-03-11] MEDS: PIPERACILLIN/TAZO 3.375 GM/D5W 50 ML IV SCH ×4 (03:20→22:07)
[2022-03-11 04:00] VITALS: BP 108/79
[2022-03-11] MEDS: INSULIN LISPRO 100 UNITS/ML SQ PRN ×3 (05:59→18:24)
[2022-03-11 06:17] LABS: HEMATOCRIT 23.8 % (41-53); HEMOGLOBIN 7.8 g/dL (13.5-17.5); MEAN CORPUSCULAR HEMOGLOBIN 31.5 pg (26.0-34.0); MEAN CORPUSCULAR HGB CONC 32.9 G/dL (31.0-37.0); MEAN CORPUSCULAR VOLUME 96 fL (80-100); PLATELET COUNT (AUTO) 51 K/uL (150-450); RED BLOOD CELL COUNT(AUTO) 2.49 MIL/uL (4.50-5.90); RED CELL DISTRIBUTION WIDTH 18.8 % (11.5-14.5)
[2022-03-11 06:25] LABS: ANION GAP 6 mmol/L (8-16); CALCIUM, TOTAL 7.9 mg/dL (8.8-10.5); CARBON DIOXIDE 33 mmol/L (22-29); CHLORIDE 107 mmol/L (98-107); CREATININE 1.03 mg/dL (0.60-1.30); GLUCOSE,RANDOM 153 mg/dL (70-110); PHOSPHORUS 3.4 mg/dL (2.5-4.9); POTASSIUM 3.7 mmol/L (3.5-5.1); SODIUM SERUM 146 mmol/L (136-145); UREA NITROGEN, BLOOD 49 mg/dL (7-18)
[2022-03-11 06:37] LABS: GLOMERULAR FILTR. RATE CALC > 60 mL/min (>60)
[2022-03-11 06:45] LABS: BAND NEUTROPHILS % (MANUAL) 0 % (0-5)
[2022-03-11 07:37] LABS: BLASTS, MANUAL % 71 (0-0); LYMPHOCYTES % (MANUAL) 15 % (22-44); MONOCYTES % (MANUAL) 3 % (2-9); SEGMENTED NEUTROPHILS % 11 % (40-70)
[2022-03-11 08:00] VITALS: BP 98/49
[2022-03-11] MEDS: PANTOPRAZOLE SODIUM 40 MG/VIAL IVP SCH (08:55)
[2022-03-11] MEDS: ETHYL ALCOHOL 62% ANTISEPTIC NASAL SANITIZER 0.6 ML AMPUL NASAL SCH ×2 (08:55→22:07)
[2022-03-11] MEDS: DOCUSATE SODIUM 100 MG CAPSULE PO SCH ×2 (08:55→21:00)
[2022-03-11] MEDS ORDERED: SODIUM CHLORIDE 0.9% 250 ML IV ONE ×2 (10:18→22:26)
[2022-03-11 12:00] VITALS: BP 96/45
[2022-03-11 16:00] VITALS: BP 109/47
[2022-03-11 20:00] VITALS: BP 138/59
[2022-03-11] MEDS: IPRATROPIUM BROMIDE 0.5 MG/2.5 ML NEB SOLUTION NEB PRN (20:07)
[2022-03-12] VITALS: BP 106/46
[2022-03-12] MEDS: INSULIN LISPRO 100 UNITS/ML SQ PRN ×4 (00:08→19:52)
[2022-03-12] MEDS ORDERED: DEXTROSE 5%-WATER 500 ML IV ONE (00:45)
[2022-03-12] MEDS: ALBUTEROL SULFATE 2.5 MG/0.5 ML NEB SOLUTION NEB PRN ×4 (02:03→20:00)
[2022-03-12] MEDS: IPRATROPIUM BROMIDE 0.5 MG/2.5 ML NEB SOLUTION NEB PRN ×3 (02:03→20:00)
[2022-03-12] MEDS: ACETYLCYSTEINE 10% 100 MG/ML 4 ML NEB SOLUTION NEB SCH ×4 (02:13→20:00)
[2022-03-12] MEDS: PIPERACILLIN/TAZO 3.375 GM/D5W 50 ML IV SCH ×2 (03:03→09:06)
[2022-03-12 04:00] VITALS: BP 111/50
[2022-03-12 05:23] LABS: HEMATOCRIT 23.1 % (41-53); HEMOGLOBIN 7.4 g/dL (13.5-17.5); MEAN CORPUSCULAR HEMOGLOBIN 30.5 pg (26.0-34.0); MEAN CORPUSCULAR HGB CONC 31.9 G/dL (31.0-37.0); MEAN CORPUSCULAR VOLUME 96 fL (80-100); PLATELET COUNT (AUTO) 53 K/uL (150-450); RED BLOOD CELL COUNT(AUTO) 2.42 MIL/uL (4.50-5.90); RED CELL DISTRIBUTION WIDTH 19.3 % (11.5-14.5)
[2022-03-12 05:26] LABS: ANION GAP 8 mmol/L (8-16); CALCIUM, TOTAL 7.8 mg/dL (8.8-10.5); CARBON DIOXIDE 32 mmol/L (22-29); CHLORIDE 106 mmol/L (98-107); CREATININE 1.03 mg/dL (0.60-1.30); GLUCOSE,RANDOM 272 mg/dL (70-110); POTASSIUM 3.4 mmol/L (3.5-5.1); SODIUM SERUM 146 mmol/L (136-145); UREA NITROGEN, BLOOD 53 mg/dL (7-18)
[2022-03-12 05:34] LABS: BAND NEUTROPHILS % (MANUAL) 0 % (0-5); GLOMERULAR FILTR. RATE CALC > 60 mL/min (>60)
[2022-03-12 05:56] LABS: BLASTS, MANUAL % 73 (0-0); LYMPHOCYTES % (MANUAL) 14 % (22-44); MONOCYTES % (MANUAL) 1 % (2-9); SEGMENTED NEUTROPHILS % 12 % (40-70)
[2022-03-12] MEDS: POTASSIUM CHL 10 MEQ/WATER 50 ML IV PRN ×4 (06:09→11:35)
[2022-03-12 08:00] VITALS: BP 96/41
[2022-03-12] MEDS: DOCUSATE SODIUM 100 MG CAPSULE PO SCH ×2 (09:00→21:00)
[2022-03-12] MEDS: PANTOPRAZOLE SODIUM 40 MG/VIAL IVP SCH (09:06)
[2022-03-12] MEDS: ETHYL ALCOHOL 62% ANTISEPTIC NASAL SANITIZER 0.6 ML AMPUL NASAL SCH ×2 (09:07→21:21)
[2022-03-12] MEDS: MIDODRINE HCL 5 MG TABLET NG SCH ×2 (10:33→21:21)
[2022-03-12 12:00] VITALS: BP 115/57
[2022-03-12] MEDS ORDERED: *CLINICAL-BACTRIM/SEPTRA IVPB DOSING CLINICAL ONE (14:45)
[2022-03-12] MEDS: SULFAMETHOX/TRIMETH 20 ML in DEXTROSE 5%-WATER 250 ML IV SCH ×2 (15:23→22:51)
[2022-03-12 16:00] VITALS: BP 128/54
[2022-03-12 20:00] VITALS: BP 123/55
[2022-03-13] VITALS: BP 120/56
[2022-03-13] MEDS: ACETYLCYSTEINE 10% 100 MG/ML 4 ML NEB SOLUTION NEB SCH ×4 (03:00→21:00)
[2022-03-13] MEDS: ALBUTEROL SULFATE 2.5 MG/0.5 ML NEB SOLUTION NEB PRN ×4 (03:00→21:00)
[2022-03-13] MEDS: IPRATROPIUM BROMIDE 0.5 MG/2.5 ML NEB SOLUTION NEB PRN ×4 (03:00→21:00)
[2022-03-13 04:25] VITALS: BP 118/54
[2022-03-13 06:06] LABS: HEMATOCRIT 25.7 % (41-53); HEMOGLOBIN 8.3 g/dL (13.5-17.5); MEAN CORPUSCULAR HEMOGLOBIN 31.2 pg (26.0-34.0); MEAN CORPUSCULAR HGB CONC 32.3 G/dL (31.0-37.0); MEAN CORPUSCULAR VOLUME 97 fL (80-100); PLATELET COUNT (AUTO) 52 K/uL (150-450); RED BLOOD CELL COUNT(AUTO) 2.66 MIL/uL (4.50-5.90)
[2022-03-13 06:17] LABS: ANION GAP 6 mmol/L (8-16); CALCIUM, TOTAL 7.4 mg/dL (8.8-10.5); CARBON DIOXIDE 32 mmol/L (22-29); CHLORIDE 106 mmol/L (98-107); CREATININE 0.88 mg/dL (0.60-1.30); GLOMERULAR FILTR. RATE CALC > 60 mL/min (>60); GLUCOSE,RANDOM 203 mg/dL (70-110); POTASSIUM 4.1 mmol/L (3.5-5.1); SODIUM SERUM 144 mmol/L (136-145); UREA NITROGEN, BLOOD 46 mg/dL (7-18)
[2022-03-13 06:21] LABS: BAND NEUTROPHILS % (MANUAL) 1 % (0-5); BLASTS, MANUAL % 78 (0-0); LYMPHOCYTES % (MANUAL) 9 % (22-44); MONOCYTES % (MANUAL) 2 % (2-9); SEGMENTED NEUTROPHILS % 10 % (40-70)
[2022-03-13] MEDS ORDERED: SODIUM CHLORIDE 0.9% 250 ML IV ONE (06:43)
[2022-03-13] MEDS: SULFAMETHOX/TRIMETH 20 ML in DEXTROSE 5%-WATER 250 ML IV SCH ×3 (06:58→22:56)
[2022-03-13 08:00] VITALS: BP 119/53
[2022-03-13] MEDS: MIDODRINE HCL 5 MG TABLET NG SCH ×2 (08:54→20:24)
[2022-03-13] MEDS: PANTOPRAZOLE SODIUM 40 MG/VIAL IVP SCH (08:54)
[2022-03-13] MEDS: DOCUSATE SODIUM 100 MG CAPSULE PO SCH ×2 (08:54→20:24)
[2022-03-13] MEDS: ETHYL ALCOHOL 62% ANTISEPTIC NASAL SANITIZER 0.6 ML AMPUL NASAL SCH ×2 (08:54→20:24)
[2022-03-13 12:00] VITALS: BP 114/54
[2022-03-13 16:00] VITALS: BP 123/50
[2022-03-13] MEDS: INSULIN LISPRO 100 UNITS/ML SQ PRN (19:02)
[2022-03-13 20:00] VITALS: BP 116/50
[2022-03-13] MEDS ORDERED: SODIUM CHLORIDE 0.9% 500 ML IV ONE (22:54)
[2022-03-13] MEDS: MELATONIN 5 MG TABLET PO PRN (23:17)
[2022-03-14] VITALS (7 sets, daily range): BP systolic 116–138; BP diastolic 47–68
[2022-03-14] MEDS: INSULIN LISPRO 100 UNITS/ML SQ PRN ×4 (01:23→22:29)
[2022-03-14] MEDS: IPRATROPIUM BROMIDE 0.5 MG/2.5 ML NEB SOLUTION NEB PRN ×5 (02:04→20:42)
[2022-03-14] MEDS: ALBUTEROL SULFATE 2.5 MG/0.5 ML NEB SOLUTION NEB PRN ×5 (02:04→20:42)
[2022-03-14] MEDS: ACETYLCYSTEINE 10% 100 MG/ML 4 ML NEB SOLUTION NEB SCH ×4 (02:04→20:55)
[2022-03-14] MEDS: SULFAMETHOX/TRIMETH 20 ML in DEXTROSE 5%-WATER 250 ML IV SCH ×3 (08:29→23:43)
[2022-03-14] MEDS: DOCUSATE SODIUM 100 MG CAPSULE PO SCH ×3 (08:30→21:00)
[2022-03-14] MEDS: ETHYL ALCOHOL 62% ANTISEPTIC NASAL SANITIZER 0.6 ML AMPUL NASAL SCH ×2 (08:30→22:19)
[2022-03-14] MEDS: MIDODRINE HCL 5 MG TABLET NG SCH ×2 (08:30→22:19)
[2022-03-14] MEDS: PANTOPRAZOLE SODIUM 40 MG/VIAL IVP SCH (08:30)
[2022-03-14 09:01] LABS: HEMATOCRIT 23.7 % (41-53); HEMOGLOBIN 7.5 g/dL (13.5-17.5); MEAN CORPUSCULAR HEMOGLOBIN 30.6 pg (26.0-34.0); MEAN CORPUSCULAR HGB CONC 31.7 G/dL (31.0-37.0); MEAN CORPUSCULAR VOLUME 97 fL (80-100); PLATELET COUNT (AUTO) 52 K/uL (150-450); RED BLOOD CELL COUNT(AUTO) 2.45 MIL/uL (4.50-5.90); RED CELL DISTRIBUTION WIDTH 18.9 % (11.5-14.5)
[2022-03-14 09:15] LABS: ANION GAP 5 mmol/L (8-16); CALCIUM, TOTAL 7.4 mg/dL (8.8-10.5); CARBON DIOXIDE 31 mmol/L (22-29); CHLORIDE 107 mmol/L (98-107); GLOMERULAR FILTR. RATE CALC > 60 mL/min (>60); GLUCOSE,RANDOM 174 mg/dL (70-110); POTASSIUM 4.3 mmol/L (3.5-5.1); SODIUM SERUM 143 mmol/L (136-145); UREA NITROGEN, BLOOD 41 mg/dL (7-18)
[2022-03-14 09:23] LABS: BAND NEUTROPHILS % (MANUAL) 1 % (0-5); BLASTS, MANUAL % 75 (0-0); LYMPHOCYTES % (MANUAL) 10 % (22-44); MONOCYTES % (MANUAL) 5 % (2-9); SEGMENTED NEUTROPHILS % 9 % (40-70)
[2022-03-14 09:24] LABS: WBC MORPHOLOGY TOXIC GRANULATION
[2022-03-14] MEDS ORDERED: SODIUM CHLORIDE 0.9% 250 ML IV ONE (16:08)
[2022-03-14] MEDS: MELATONIN 5 MG TABLET PO PRN (22:19)
[2022-03-14 22:56] LABS: GLUCOMETER DEV NAME(LOC) 5S.1B; GLUCOSE,POINT OF CARE 221 MG/DL (70-110)
[2022-03-14 22:56] LABS: GLUCOMETER DEV NAME(LOC) 5S.1B; GLUCOSE,POINT OF CARE 176 MG/DL (70-110)
[2022-03-15] MEDS: ALBUTEROL SULFATE 2.5 MG/0.5 ML NEB SOLUTION NEB PRN ×4 (01:00→19:32)
[2022-03-15] MEDS: IPRATROPIUM BROMIDE 0.5 MG/2.5 ML NEB SOLUTION NEB PRN (01:00)
[2022-03-15] MEDS: ACETYLCYSTEINE 10% 100 MG/ML 4 ML NEB SOLUTION NEB SCH ×4 (01:13→19:32)
[2022-03-15 04:11] VITALS: BP 123/50
[2022-03-15] MEDS: INSULIN LISPRO 100 UNITS/ML SQ PRN ×2 (06:16→17:53)
[2022-03-15 06:46] LABS: GLUCOMETER DEV NAME(LOC) 5N.3; GLUCOSE,POINT OF CARE 166 MG/DL (70-110)
[2022-03-15] MEDS: SULFAMETHOX/TRIMETH 20 ML in DEXTROSE 5%-WATER 250 ML IV SCH ×3 (07:01→23:47)
[2022-03-15 07:25] VITALS: BP 124/58
[2022-03-15] MEDS: DOCUSATE SODIUM 100 MG CAPSULE PO SCH ×2 (09:00→20:28)
[2022-03-15] MEDS: ACETAMINOPHEN 325 MG TABLET PO PRN (09:06)
[2022-03-15] MEDS: MIDODRINE HCL 5 MG TABLET NG SCH ×2 (09:06→20:28)
[2022-03-15] MEDS: PANTOPRAZOLE SODIUM 40 MG/VIAL IVP SCH (09:06)
[2022-03-15] MEDS: ETHYL ALCOHOL 62% ANTISEPTIC NASAL SANITIZER 0.6 ML AMPUL NASAL SCH ×2 (09:07→20:28)
[2022-03-15 10:47] LABS: HEMATOCRIT 23.3 % (41-53); HEMOGLOBIN 7.3 g/dL (13.5-17.5); MEAN CORPUSCULAR HEMOGLOBIN 30.1 pg (26.0-34.0); MEAN CORPUSCULAR HGB CONC 31.4 G/dL (31.0-37.0); MEAN CORPUSCULAR VOLUME 96 fL (80-100); PLATELET COUNT (AUTO) 53 K/uL (150-450); RED BLOOD CELL COUNT(AUTO) 2.43 MIL/uL (4.50-5.90); RED CELL DISTRIBUTION WIDTH 18.4 % (11.5-14.5)
[2022-03-15 10:52] LABS: GLUCOMETER DEV NAME(LOC) 5N.1C; GLUCOSE,POINT OF CARE 177 MG/DL (70-110)
[2022-03-15 10:54] LABS: ANION GAP 3 mmol/L (8-16); CARBON DIOXIDE 31 mmol/L (22-29); CHLORIDE 106 mmol/L (98-107); GLOMERULAR FILTR. RATE CALC > 60 mL/min (>60); GLUCOSE,RANDOM 131 mg/dL (70-110); POTASSIUM 4.7 mmol/L (3.5-5.1); SODIUM SERUM 140 mmol/L (136-145); UREA NITROGEN, BLOOD 41 mg/dL (7-18)
[2022-03-15 11:06] VITALS: BP 122/64
[2022-03-15 11:08] LABS: GLUCOSE,POINT OF CARE 185 MG/DL (70-110)
[2022-03-15 11:08] LABS: GLUCOSE,POINT OF CARE 169 MG/DL (70-110)
[2022-03-15 11:08] LABS: GLUCOSE,POINT OF CARE 225 MG/DL (70-110)
[2022-03-15 11:08] LABS: GLUCOSE,POINT OF CARE 208 MG/DL (70-110)
[2022-03-15 11:08] LABS: GLUCOSE,POINT OF CARE 153 MG/DL (70-110)
[2022-03-15 11:08] LABS: GLUCOSE,POINT OF CARE 186 MG/DL (70-110)
[2022-03-15 11:09] LABS: GLUCOSE,POINT OF CARE 178 MG/DL (70-110)
[2022-03-15 11:09] LABS: GLUCOSE,POINT OF CARE 147 MG/DL (70-110)
[2022-03-15 11:09] LABS: GLUCOSE,POINT OF CARE 191 MG/DL (70-110)
[2022-03-15 11:09] LABS: GLUCOSE,POINT OF CARE 234 MG/DL (70-110)
[2022-03-15 11:10] LABS: GLUCOSE,POINT OF CARE 234 MG/DL (70-110)
[2022-03-15 11:10] LABS: GLUCOSE,POINT OF CARE 206 MG/DL (70-110)
[2022-03-15 11:11] LABS: GLUCOSE,POINT OF CARE 234 MG/DL (70-110)
[2022-03-15 11:11] LABS: GLUCOSE,POINT OF CARE 180 MG/DL (70-110)
[2022-03-15 11:11] LABS: GLUCOSE,POINT OF CARE 124 MG/DL (70-110)
[2022-03-15 11:11] LABS: GLUCOSE,POINT OF CARE 196 MG/DL (70-110)
[2022-03-15 11:11] LABS: GLUCOSE,POINT OF CARE 231 MG/DL (70-110)
[2022-03-15 11:12] LABS: GLUCOSE,POINT OF CARE 238 MG/DL (70-110)
[2022-03-15 11:12] LABS: GLUCOSE,POINT OF CARE 164 MG/DL (70-110)
[2022-03-15 11:13] LABS: GLUCOSE,POINT OF CARE 173 MG/DL (70-110)
[2022-03-15 11:13] LABS: GLUCOSE,POINT OF CARE 224 MG/DL (70-110)
[2022-03-15 11:13] LABS: GLUCOSE,POINT OF CARE 166 MG/DL (70-110)
[2022-03-15 11:13] LABS: GLUCOSE,POINT OF CARE 193 MG/DL (70-110)
[2022-03-15 11:13] LABS: GLUCOSE,POINT OF CARE 196 MG/DL (70-110)
[2022-03-15 11:55] LABS: BAND NEUTROPHILS % (MANUAL) 1 % (0-5); BLASTS, MANUAL % 86 (0-0); LYMPHOCYTES % (MANUAL) 3 % (22-44); MONOCYTES % (MANUAL) 2 % (2-9); SEGMENTED NEUTROPHILS % 8 % (40-70)
[2022-03-15 15:07] VITALS: BP 128/72
[2022-03-15 17:56] LABS: GLUCOMETER DEV NAME(LOC) 5S.1B; GLUCOSE,POINT OF CARE 249 MG/DL (70-110)
[2022-03-15] MEDS ORDERED: LORazepam 2 MG/ML VIAL IVP ONE (18:00)
[2022-03-15 19:50] VITALS: BP 121/60
[2022-03-15] MEDS: LORazepam 2 MG/ML VIAL IVP ONE ×2 (20:00→23:47)
[2022-03-15] MEDS: MELATONIN 5 MG TABLET PO PRN (20:28)
[2022-03-16] VITALS (7 sets, daily range): BP systolic 84–141; BP diastolic 33–72
[2022-03-16] MEDS ORDERED: SODIUM CHLORIDE 0.9% 250 ML IV ONE ×2 (01:09→03:55)
[2022-03-16] MEDS ORDERED: NOREPINEPHRINE 8 MG/D5%-WATER 250 ML IV ONE (01:43)
[2022-03-16] MEDS: NOREPINEPHRINE 8 MG/D5%-WATER 250 ML IV PRN ×2 (01:45→21:16)
[2022-03-16] MEDS ORDERED: ALBUTEROL SULFATE 2.5 MG/0.5 ML NEB SOLUTION NEB ONE (02:15)
[2022-03-16] MEDS ORDERED: IPRATROPIUM BROMIDE 0.5 MG/2.5 ML NEB SOLUTION NEB ONE (02:15)
[2022-03-16] MEDS: ALBUTEROL SULFATE 2.5 MG/0.5 ML NEB SOLUTION NEB PRN ×4 (02:25→20:29)
[2022-03-16] MEDS: ACETYLCYSTEINE 10% 100 MG/ML 4 ML NEB SOLUTION NEB SCH ×4 (02:25→20:29)
[2022-03-16] MEDS: IPRATROPIUM BROMIDE 0.5 MG/2.5 ML NEB SOLUTION NEB PRN (02:26)
[2022-03-16 02:48] LABS: ABG BASE EXCESS 1.8 mmol/L (-2.0-3.0); ABG METHEMOGLOBIN 0.3 % (0.0-1.5); ABG OXYGEN CONTENT 11.4 mL/dL (15.0-23.0); ABG OXYGEN SATURATION 98.7 % (95.0-98.0); ABG OXYHEMOGLOBIN 97.4 % (94.0-100.0); ABG PCO2 42 mmHg (35-45); ABG PH 7.415 (7.35-7.450); ABG TOTAL HEMOGLOBIN 8.2 G/dL (12.0-18.0); SOURCE, BLOOD GAS ARTERIAL; TEMPERATURE, FAHRENHEIT, BG 98.8 FAHREN (96.0-98.6)
[2022-03-16 03:06] LABS: O2 DEVICE,BLOOD GAS VENTILATOR (ROOM AIR); SITE, BLOOD GAS RT BRACHIAL; VT, ABG 450 ml
[2022-03-16 03:07] LABS: PEEP,BG 5 cm H2O
[2022-03-16 05:38] LABS: ANION GAP 8 mmol/L (8-16); CALCIUM, TOTAL 8.4 mg/dL (8.8-10.5); CARBON DIOXIDE 28 mmol/L (22-29); CHLORIDE 104 mmol/L (98-107); CREATININE 1.03 mg/dL (0.60-1.30); GLUCOSE,RANDOM 257 mg/dL (70-110); HEMATOCRIT 25.7 % (41-53); HEMOGLOBIN 8.4 g/dL (13.5-17.5); MEAN CORPUSCULAR HEMOGLOBIN 32.2 pg (26.0-34.0); MEAN CORPUSCULAR HGB CONC 32.5 G/dL (31.0-37.0); MEAN CORPUSCULAR VOLUME 99 fL (80-100); POTASSIUM 5.6 mmol/L (3.5-5.1); RED CELL DISTRIBUTION WIDTH 19.6 % (11.5-14.5); SODIUM SERUM 140 mmol/L (136-145); UREA NITROGEN, BLOOD 51 mg/dL (7-18)
[2022-03-16 05:43] LABS: GLOMERULAR FILTR. RATE CALC > 60 mL/min (>60)
[2022-03-16] MEDS: INSULIN LISPRO 100 UNITS/ML SQ PRN ×3 (05:49→18:20)
[2022-03-16 05:51] LABS: PLATELET COUNT (AUTO) 18 K/uL (150-450)
[2022-03-16 06:02] LABS: BAND NEUTROPHILS % (MANUAL) 1 % (0-5); BLASTS, MANUAL % 83 (0-0); EOSINOPHILS % (MANUAL) 1 % (1-6); LYMPHOCYTES % (MANUAL) 6 % (22-44); MONOCYTES % (MANUAL) 1 % (2-9); SEGMENTED NEUTROPHILS % 8 % (40-70)
[2022-03-16] MEDS: SULFAMETHOX/TRIMETH 20 ML in DEXTROSE 5%-WATER 250 ML IV SCH ×3 (06:52→23:41)
[2022-03-16 08:01] LABS: GLUCOSE,POINT OF CARE 215 MG/DL (70-110)
[2022-03-16 08:41] LABS: GLUCOMETER DEV NAME(LOC) 5N.1C; GLUCOSE,POINT OF CARE 235 MG/DL (70-110)
[2022-03-16] MEDS: DOCUSATE SODIUM 100 MG CAPSULE PO SCH ×2 (09:00→21:19)
[2022-03-16] MEDS: ETHYL ALCOHOL 62% ANTISEPTIC NASAL SANITIZER 0.6 ML AMPUL NASAL SCH ×2 (09:59→21:17)
[2022-03-16] MEDS: PANTOPRAZOLE SODIUM 40 MG/VIAL IVP SCH (09:59)
[2022-03-16] MEDS: MIDODRINE HCL 5 MG TABLET NG SCH ×2 (09:59→21:19)
[2022-03-16] MEDS ORDERED: SODIUM ZIRCONIUM CYCLOSILICATE 5 GM POWDER PACKET PO ONE ×2 (12:15→15:00)
[2022-03-16] MEDS: QUEtiapine FUMARATE 25 MG TABLET PO SCH ×2 (12:16→21:20)
[2022-03-16] MEDS: PROPOFOL 1000 MG/ISO-OSM 100 ML IV PRN (13:49)
[2022-03-16] MEDS: FentaNYL CIT 1000MCG/0.9% NACL 100 ML IV PRN (13:50)
[2022-03-16 16:39] LABS: APPEARANCE,URINE TURBID (CLEAR); BILIRUBIN,URINE NEGATIVE (NEGATIVE); GLUCOSE, URINE (UA) NEGATIVE (NEGATIVE); KETONES,URINE NEGATIVE (NEGATIVE); LEUKOCYTE ESTERASE ,URINE LARGE (NEGATIVE); NITRATE,URINE NEGATIVE (NEGATIVE); OCCULT BLOOD,URINE MODERATE (NEGATIVE); PROTEIN,URINE 30-70 mg/dL (NEGATIVE); SPECIFIC GRAVITIY, URINE 1.018 (1.003-1.030); UROBILINOGEN,URINE <=1.0 mg/dL (<=1.0)
[2022-03-16 17:15] LABS: BACTERIA,URINE Moderate /HPF (None Seen); YEAST,URINE Many /HPF (None Seen)
[2022-03-16] MEDS: CefTAZidime PENTAHYDRATE 0.5 GM in DEXTROSE 5%-WATER 50 ML IV SCH (18:02)
[2022-03-16] MEDS: MetroNIDAZOLE 500 MG TABLET GT SCH (18:03)
[2022-03-16] MEDS: ACETAMINOPHEN 325 MG TABLET PO PRN (21:31)
[2022-03-17] VITALS (17 sets, daily range): BP systolic 97–122; BP diastolic 43–68
[2022-03-17] MEDS: MetroNIDAZOLE 500 MG TABLET GT SCH ×4 (00:27→23:11)
[2022-03-17 00:31] LABS: GLUCOSE,POINT OF CARE 142 MG/DL (70-110)
[2022-03-17 00:31] LABS: GLUCOSE,POINT OF CARE 144 MG/DL (70-110)
[2022-03-17] MEDS: CefTAZidime PENTAHYDRATE 0.5 GM in DEXTROSE 5%-WATER 50 ML IV SCH ×2 (02:02→10:43)
[2022-03-17] MEDS: ALBUTEROL SULFATE 2.5 MG/0.5 ML NEB SOLUTION NEB PRN ×2 (02:33→07:59)
[2022-03-17] MEDS: ACETYLCYSTEINE 10% 100 MG/ML 4 ML NEB SOLUTION NEB SCH ×2 (02:33→07:58)
[2022-03-17] MEDS: INSULIN LISPRO 100 UNITS/ML SQ PRN ×2 (05:52→18:13)
[2022-03-17 06:10] LABS: MEAN CORPUSCULAR HEMOGLOBIN 30.6 pg (26.0-34.0); MEAN CORPUSCULAR HGB CONC 31.6 G/dL (31.0-37.0); MEAN CORPUSCULAR VOLUME 97 fL (80-100); PLATELET COUNT (AUTO) 47 K/uL (150-450); RED BLOOD CELL COUNT(AUTO) 2.06 MIL/uL (4.50-5.90); RED CELL DISTRIBUTION WIDTH 19.1 % (11.5-14.5)
[2022-03-17 06:12] LABS: ALBUMIN 1.7 g/dL (3.4-5.0); BILIRUBIN,TOTAL 0.2 mg/dL (0.1-1.0); CALCIUM, TOTAL 8.2 mg/dL (8.8-10.5); CREATININE 1.25 mg/dL (0.60-1.30); MAGNESIUM 2.5 mg/dL (1.80-2.40); POTASSIUM 4.9 mmol/L (3.5-5.1); TOTAL PROTEIN, SERUM 4.5 g/dL (6.4-8.2)
[2022-03-17 06:22] LABS: HEMATOCRIT 19.9 % (41-53); HEMOGLOBIN 6.3 g/dL (13.5-17.5)
[2022-03-17] MEDS: IPRATROPIUM BROMIDE 0.5 MG/2.5 ML NEB SOLUTION NEB PRN (07:59)
[2022-03-17 08:01] LABS: GLUCOSE,POINT OF CARE 119 MG/DL (70-110)
[2022-03-17 08:01] LABS: GLUCOSE,POINT OF CARE 160 MG/DL (70-110)
[2022-03-17] MEDS: SULFAMETHOX/TRIMETH 20 ML in DEXTROSE 5%-WATER 250 ML IV SCH ×3 (08:06→23:11)
[2022-03-17] MEDS: QUEtiapine FUMARATE 25 MG TABLET PO SCH ×2 (08:52→20:00)
[2022-03-17] MEDS: ETHYL ALCOHOL 62% ANTISEPTIC NASAL SANITIZER 0.6 ML AMPUL NASAL SCH ×2 (08:52→20:00)
[2022-03-17] MEDS: MIDODRINE HCL 5 MG TABLET NG SCH ×2 (08:52→20:00)
[2022-03-17] MEDS: DOCUSATE SODIUM 100 MG CAPSULE PO SCH ×2 (08:52→20:01)
[2022-03-17] MEDS: PANTOPRAZOLE SODIUM 40 MG/VIAL IVP SCH (09:01)
[2022-03-17 10:13] LABS: BAND NEUTROPHILS % (MANUAL) 1 % (0-5); BLASTS, MANUAL % 73 (0-0); LYMPHOCYTES % (MANUAL) 12 % (22-44); SEGMENTED NEUTROPHILS % 14 % (40-70)
[2022-03-17 13:26] LABS: GLUCOSE,POINT OF CARE 163 MG/DL (70-110)
[2022-03-17] MEDS: FentaNYL CIT 1000MCG/0.9% NACL 100 ML IV PRN (16:12)
[2022-03-17 16:43] LABS: HEMATOCRIT 20.7 % (41-53); HEMOGLOBIN 6.6 g/dL (13.5-17.5)
[2022-03-17] MEDS: NOREPINEPHRINE 8 MG/D5%-WATER 250 ML IV PRN (17:29)
[2022-03-17] MEDS: CefTAZidime PENTAHYDRATE 2 GM in DEXTROSE 5%-WATER 50 ML IV SCH (18:12)
[2022-03-17 19:56] LABS: GLUCOSE,POINT OF CARE 157 MG/DL (70-110)
[2022-03-17] MEDS ORDERED: SODIUM CHLORIDE 0.9% 0 ML IV ONE (20:16)
[2022-03-17] MEDS ORDERED: SODIUM CHLORIDE 0.9% 250 ML IV ONE (20:20)
[2022-03-17] MEDS: ACETAMINOPHEN 325 MG TABLET PO PRN (23:11)
[2022-03-18] VITALS: BP 110/47
[2022-03-18] MEDS: INSULIN LISPRO 100 UNITS/ML SQ PRN ×3 (00:37→13:19)
[2022-03-18] MEDS: FentaNYL CIT 1000MCG/0.9% NACL 100 ML IV PRN ×2 (01:13→12:48)
[2022-03-18] MEDS: PROPOFOL 1000 MG/ISO-OSM 100 ML IV PRN (02:31)
[2022-03-18 03:32] LABS: GLUCOSE,POINT OF CARE 161 MG/DL (70-110)
[2022-03-18 04:00] VITALS: BP 106/57
[2022-03-18 05:38] LABS: CALCIUM, TOTAL 8.2 mg/dL (8.8-10.5); CREATININE 1.23 mg/dL (0.60-1.30); MAGNESIUM 2.5 mg/dL (1.80-2.40); POTASSIUM 4.8 mmol/L (3.5-5.1)
[2022-03-18] MEDS: CefTAZidime PENTAHYDRATE 2 GM in DEXTROSE 5%-WATER 50 ML IV SCH ×2 (05:38→17:10)
[2022-03-18 05:43] LABS: HEMATOCRIT 25.4 % (41-53); HEMOGLOBIN 8.2 g/dL (13.5-17.5); MEAN CORPUSCULAR HEMOGLOBIN 30.3 pg (26.0-34.0); MEAN CORPUSCULAR HGB CONC 32.4 G/dL (31.0-37.0); MEAN CORPUSCULAR VOLUME 93 fL (80-100); PLATELET COUNT (AUTO) 45 K/uL (150-450); RED BLOOD CELL COUNT(AUTO) 2.72 MIL/uL (4.50-5.90); RED CELL DISTRIBUTION WIDTH 17.3 % (11.5-14.5)
[2022-03-18 06:51] LABS: GLUCOSE,POINT OF CARE 132 MG/DL (70-110)
[2022-03-18 07:34] LABS: SEGMENTED NEUTROPHILS % 13 % (40-70)
[2022-03-18 07:35] LABS: BAND NEUTROPHILS % (MANUAL) 1 % (0-5); BLASTS, MANUAL % 68 (0-0); LYMPHOCYTES % (MANUAL) 14 % (22-44); MONOCYTES % (MANUAL) 4 % (2-9)
[2022-03-18] MEDS: SULFAMETHOX/TRIMETH 20 ML in DEXTROSE 5%-WATER 250 ML IV SCH ×3 (07:47→23:16)
[2022-03-18] MEDS: MetroNIDAZOLE 500 MG TABLET GT SCH ×2 (07:48→17:28)
[2022-03-18] MEDS: ETHYL ALCOHOL 62% ANTISEPTIC NASAL SANITIZER 0.6 ML AMPUL NASAL SCH ×2 (07:49→21:16)
[2022-03-18] MEDS: PANTOPRAZOLE SODIUM 40 MG/VIAL IVP SCH (07:49)
[2022-03-18] MEDS: DOCUSATE SODIUM 100 MG CAPSULE PO SCH ×2 (07:49→21:00)
[2022-03-18] MEDS: MIDODRINE HCL 5 MG TABLET NG SCH ×2 (07:50→21:17)
[2022-03-18] MEDS: QUEtiapine FUMARATE 25 MG TABLET PO SCH ×2 (07:51→21:17)
[2022-03-18 08:00] VITALS: BP 112/47
[2022-03-18 12:00] VITALS: BP 101/51
[2022-03-18] MEDS: NOREPINEPHRINE 8 MG/D5%-WATER 250 ML IV PRN (12:49)
[2022-03-18 15:31] LABS: GLUCOSE,POINT OF CARE 151 MG/DL (70-110)
[2022-03-18 16:00] VITALS: BP 109/54
[2022-03-18 20:00] VITALS: BP 105/45
[2022-03-18 20:01] LABS: GLUCOSE,POINT OF CARE 81 MG/DL (70-110)
[2022-03-18] MEDS: MELATONIN 5 MG TABLET PO PRN (21:17)
[2022-03-18 21:40] LABS: C.DIFF GDH ANTIGEN, Stool Negative (Negative); C.DIFF TOXINS A&B, Stool Negative (Negative)
[2022-03-18] MEDS ORDERED: SODIUM CHLORIDE 0.9% 250 ML IV ONE (23:28)
[2022-03-18 23:31] LABS: GLUCOSE,POINT OF CARE 111 MG/DL (70-110)
[2022-03-19] VITALS: BP 133/44
[2022-03-19] MEDS: MetroNIDAZOLE 500 MG TABLET GT SCH ×3 (00:44→16:15)
[2022-03-19 04:00] VITALS: BP 116/47
[2022-03-19 04:40] LABS: CALCIUM, TOTAL 8.1 mg/dL (8.8-10.5); CREATININE 1.18 mg/dL (0.60-1.30); MAGNESIUM 2.6 mg/dL (1.80-2.40); POTASSIUM 4.9 mmol/L (3.5-5.1)
[2022-03-19 04:54] LABS: HEMATOCRIT 23.3 % (41-53); HEMOGLOBIN 7.5 g/dL (13.5-17.5); MEAN CORPUSCULAR HEMOGLOBIN 30.1 pg (26.0-34.0); MEAN CORPUSCULAR HGB CONC 32.3 G/dL (31.0-37.0); MEAN CORPUSCULAR VOLUME 93 fL (80-100); PLATELET COUNT (AUTO) 30 K/uL (150-450); RED BLOOD CELL COUNT(AUTO) 2.49 MIL/uL (4.50-5.90); RED CELL DISTRIBUTION WIDTH 17.6 % (11.5-14.5)
[2022-03-19 05:13] LABS: BAND NEUTROPHILS % (MANUAL) 0 % (0-5)
[2022-03-19 05:35] LABS: BLASTS, MANUAL % 86 (0-0); LYMPHOCYTES % (MANUAL) 1 % (22-44); MONOCYTES % (MANUAL) 1 % (2-9); SEGMENTED NEUTROPHILS % 12 % (40-70)
[2022-03-19] MEDS: CefTAZidime PENTAHYDRATE 2 GM in DEXTROSE 5%-WATER 50 ML IV SCH ×2 (05:45→18:03)
[2022-03-19] MEDS: INSULIN LISPRO 100 UNITS/ML SQ PRN ×2 (05:48→12:50)
[2022-03-19] MEDS: FentaNYL CIT 1000MCG/0.9% NACL 100 ML IV PRN (06:14)
[2022-03-19] MEDS: SULFAMETHOX/TRIMETH 20 ML in DEXTROSE 5%-WATER 250 ML IV SCH (06:57)
[2022-03-19 08:00] VITALS: BP 116/55
[2022-03-19] MEDS: ETHYL ALCOHOL 62% ANTISEPTIC NASAL SANITIZER 0.6 ML AMPUL NASAL SCH ×2 (08:58→21:02)
[2022-03-19] MEDS: PANTOPRAZOLE SODIUM 40 MG/VIAL IVP SCH (08:58)
[2022-03-19] MEDS: MIDODRINE HCL 5 MG TABLET NG SCH ×2 (08:58→21:02)
[2022-03-19] MEDS: DOCUSATE SODIUM 100 MG CAPSULE PO SCH ×2 (08:58→21:02)
[2022-03-19] MEDS: QUEtiapine FUMARATE 25 MG TABLET PO SCH ×2 (08:58→21:02)
[2022-03-19 09:22] LABS: GLUCOSE,POINT OF CARE 121 MG/DL (70-110)
[2022-03-19 12:00] VITALS: BP 97/42
[2022-03-19 16:00] VITALS: BP 110/62
[2022-03-19 16:41] LABS: GLUCOSE,POINT OF CARE 120 MG/DL (70-110)
[2022-03-19 20:00] VITALS: BP 117/43
[2022-03-19] MEDS: MELATONIN 5 MG TABLET PO PRN (21:02)
[2022-03-19 21:22] LABS: GLUCOSE,POINT OF CARE 94 MG/DL (70-110)
[2022-03-19 21:26] LABS: GLUCOMETER DEV NAME(LOC) AHU.; GLUCOSE,POINT OF CARE 207 MG/DL (70-110)
[2022-03-19 21:27] LABS: GLUCOMETER DEV NAME(LOC) AHU.; GLUCOSE,POINT OF CARE 182 MG/DL (70-110)
[2022-03-19 21:27] LABS: GLUCOMETER DEV NAME(LOC) AHU.; GLUCOSE,POINT OF CARE 164 MG/DL (70-110)
[2022-03-19 21:27] LABS: GLUCOMETER DEV NAME(LOC) AHU.; GLUCOSE,POINT OF CARE 186 MG/DL (70-110)
[2022-03-19 21:27] LABS: GLUCOMETER DEV NAME(LOC) AHU.; GLUCOSE,POINT OF CARE 207 MG/DL (70-110)
[2022-03-19 21:27] LABS: GLUCOMETER DEV NAME(LOC) AHU.; GLUCOSE,POINT OF CARE 211 MG/DL (70-110)
[2022-03-19 21:28] LABS: GLUCOMETER DEV NAME(LOC) AHU.; GLUCOSE,POINT OF CARE 183 MG/DL (70-110)
[2022-03-19 21:28] LABS: GLUCOMETER DEV NAME(LOC) AHU.; GLUCOSE,POINT OF CARE 223 MG/DL (70-110)
[2022-03-19 21:28] LABS: GLUCOMETER DEV NAME(LOC) AHU.; GLUCOSE,POINT OF CARE 242 MG/DL (70-110)
[2022-03-19 21:32] LABS: GLUCOMETER DEV NAME(LOC) AHU.; GLUCOSE,POINT OF CARE 224 MG/DL (70-110)
[2022-03-19 21:32] LABS: GLUCOMETER DEV NAME(LOC) AHU.; GLUCOSE,POINT OF CARE 221 MG/DL (70-110)
[2022-03-19 21:32] LABS: GLUCOMETER DEV NAME(LOC) AHU.; GLUCOSE,POINT OF CARE 218 MG/DL (70-110)
[2022-03-19 21:33] LABS: GLUCOMETER DEV NAME(LOC) AHU.; GLUCOSE,POINT OF CARE 199 MG/DL (70-110)
[2022-03-19 21:33] LABS: GLUCOMETER DEV NAME(LOC) AHU.; GLUCOSE,POINT OF CARE 170 MG/DL (70-110)
[2022-03-19 21:33] LABS: GLUCOMETER DEV NAME(LOC) AHU.; GLUCOSE,POINT OF CARE 163 MG/DL (70-110)
[2022-03-20] VITALS: BP 109/46
[2022-03-20] MEDS: MetroNIDAZOLE 500 MG TABLET GT SCH ×3 (00:54→16:13)
[2022-03-20] MEDS ORDERED: SODIUM CHLORIDE 0.9% 250 ML IV ONE (02:53)
[2022-03-20 04:00] VITALS: BP 107/45
[2022-03-20 05:32] LABS: GLUCOSE,POINT OF CARE 98 MG/DL (70-110)
[2022-03-20] MEDS: CefTAZidime PENTAHYDRATE 2 GM in DEXTROSE 5%-WATER 50 ML IV SCH ×2 (05:41→18:10)
[2022-03-20] MEDS: FentaNYL CIT 1000MCG/0.9% NACL 100 ML IV PRN (05:42)
[2022-03-20 06:07] LABS: GLUCOSE,POINT OF CARE 108 MG/DL (70-110)
[2022-03-20 07:13] LABS: CALCIUM, TOTAL 8.2 mg/dL (8.8-10.5); CREATININE 1.2 mg/dL (0.60-1.30); MAGNESIUM 2.5 mg/dL (1.80-2.40); POTASSIUM 4.7 mmol/L (3.5-5.1)
[2022-03-20 07:44] LABS: HEMATOCRIT 22.5 % (41-53); HEMOGLOBIN 7.4 g/dL (13.5-17.5); MEAN CORPUSCULAR HEMOGLOBIN 30.9 pg (26.0-34.0); MEAN CORPUSCULAR VOLUME 94 fL (80-100); PLATELET COUNT (AUTO) 32 K/uL (150-450); RED CELL DISTRIBUTION WIDTH 17.1 % (11.5-14.5)
[2022-03-20 07:49] LABS: BAND NEUTROPHILS % (MANUAL) 0 % (0-5)
[2022-03-20 08:00] VITALS: BP 121/53
[2022-03-20] MEDS: MIDODRINE HCL 5 MG TABLET NG SCH ×2 (08:29→20:42)
[2022-03-20] MEDS: ETHYL ALCOHOL 62% ANTISEPTIC NASAL SANITIZER 0.6 ML AMPUL NASAL SCH ×2 (08:29→20:42)
[2022-03-20] MEDS: PANTOPRAZOLE SODIUM 40 MG/VIAL IVP SCH (08:30)
[2022-03-20] MEDS: QUEtiapine FUMARATE 25 MG TABLET PO SCH ×2 (08:30→20:42)
[2022-03-20] MEDS: DOCUSATE SODIUM 100 MG CAPSULE PO SCH ×2 (08:34→20:42)
[2022-03-20 10:02] LABS: BLASTS, MANUAL % 75 (0-0); EOSINOPHILS % (MANUAL) 1 % (1-6); LYMPHOCYTES % (MANUAL) 7 % (22-44); MONOCYTES % (MANUAL) 4 % (2-9); SEGMENTED NEUTROPHILS % 13 % (40-70)
[2022-03-20 10:03] LABS: WBC MORPHOLOGY SMUDGE CELLS PRESENT
[2022-03-20 12:00] VITALS: BP 117/48
[2022-03-20] MEDS: INSULIN LISPRO 100 UNITS/ML SQ PRN (12:21)
[2022-03-20 16:00] VITALS: BP 107/47
[2022-03-20 17:31] LABS: GLUCOSE,POINT OF CARE 129 MG/DL (70-110)
[2022-03-20 20:00] VITALS: BP 127/55
[2022-03-20 20:41] LABS: GLUCOSE,POINT OF CARE 103 MG/DL (70-110)
[2022-03-20] MEDS: MELATONIN 5 MG TABLET PO PRN (20:42)
[2022-03-21] VITALS: BP 116/52
[2022-03-21] MEDS: FentaNYL CIT 1000MCG/0.9% NACL 100 ML IV PRN ×2 (00:14→23:18)
[2022-03-21] MEDS: MetroNIDAZOLE 500 MG TABLET GT SCH ×3 (00:14→17:19)
[2022-03-21 04:00] VITALS: BP 111/54
[2022-03-21] MEDS: CefTAZidime PENTAHYDRATE 2 GM in DEXTROSE 5%-WATER 50 ML IV SCH ×2 (06:11→17:20)
[2022-03-21 06:31] LABS: HEMOGLOBIN 8.3 g/dL (13.5-17.5); MEAN CORPUSCULAR HEMOGLOBIN 30.3 pg (26.0-34.0); MEAN CORPUSCULAR HGB CONC 31.8 G/dL (31.0-37.0); MEAN CORPUSCULAR VOLUME 95 fL (80-100); PLATELET COUNT (AUTO) 43 K/uL (150-450); RED BLOOD CELL COUNT(AUTO) 2.73 MIL/uL (4.50-5.90); RED CELL DISTRIBUTION WIDTH 17.3 % (11.5-14.5)
[2022-03-21 06:41] LABS: GLUCOSE,POINT OF CARE 122 MG/DL (70-110)
[2022-03-21 06:43] LABS: CALCIUM, TOTAL 8.3 mg/dL (8.8-10.5); CREATININE 1.22 mg/dL (0.60-1.30); POTASSIUM 4.3 mmol/L (3.5-5.1)
[2022-03-21 06:46] LABS: GLUCOSE,POINT OF CARE 99 MG/DL (70-110)
[2022-03-21] MEDS: INSULIN LISPRO 100 UNITS/ML SQ PRN ×2 (06:48→19:00)
[2022-03-21 07:00] LABS: BAND NEUTROPHILS % (MANUAL) 0 % (0-5)
[2022-03-21 07:03] LABS: BLASTS, MANUAL % 72 (0-0); EOSINOPHILS % (MANUAL) 1 % (1-6); LYMPHOCYTES % (MANUAL) 9 % (22-44); MONOCYTES % (MANUAL) 6 % (2-9); SEGMENTED NEUTROPHILS % 12 % (40-70); WBC MORPHOLOGY TOXIC GRANULATION
[2022-03-21 08:00] VITALS: BP 112/56
[2022-03-21] MEDS: DOCUSATE SODIUM 100 MG CAPSULE PO SCH ×2 (09:00→20:24)
[2022-03-21] MEDS: MIDODRINE HCL 5 MG TABLET NG SCH ×2 (09:03→20:23)
[2022-03-21] MEDS: QUEtiapine FUMARATE 25 MG TABLET PO SCH ×2 (09:03→20:24)
[2022-03-21] MEDS: ETHYL ALCOHOL 62% ANTISEPTIC NASAL SANITIZER 0.6 ML AMPUL NASAL SCH ×2 (09:03→20:29)
[2022-03-21] MEDS: PANTOPRAZOLE SODIUM 40 MG/VIAL IVP SCH (09:04)
[2022-03-21 12:00] VITALS: BP 107/50
[2022-03-21 16:00] VITALS: BP 95/37
[2022-03-21 20:00] VITALS: BP 112/46
[2022-03-21] MEDS: MELATONIN 5 MG TABLET PO PRN (20:24)
[2022-03-22] VITALS: BP 122/57
[2022-03-22] MEDS: MetroNIDAZOLE 500 MG TABLET GT SCH ×3 (00:54→17:32)
[2022-03-22 01:56] LABS: GLUCOSE,POINT OF CARE 158 MG/DL (70-110)
[2022-03-22] MEDS: INSULIN LISPRO 100 UNITS/ML SQ PRN ×3 (03:01→17:58)
[2022-03-22 04:00] VITALS: BP 72/51
[2022-03-22] MEDS ORDERED: SODIUM CHLORIDE 0.9% 250 ML IV ONE (04:15)
[2022-03-22] MEDS: CefTAZidime PENTAHYDRATE 2 GM in DEXTROSE 5%-WATER 50 ML IV SCH ×2 (05:28→18:50)
[2022-03-22] MEDS: NOREPINEPHRINE 8 MG/D5%-WATER 250 ML IV PRN (05:29)
[2022-03-22 05:31] LABS: GLUCOMETER DEV NAME(LOC) AHU.; GLUCOSE,POINT OF CARE 147 MG/DL (70-110)
[2022-03-22 06:27] LABS: HEMATOCRIT 25.7 % (41-53); HEMOGLOBIN 8.3 g/dL (13.5-17.5); MEAN CORPUSCULAR HEMOGLOBIN 30.6 pg (26.0-34.0); MEAN CORPUSCULAR HGB CONC 32.3 G/dL (31.0-37.0); MEAN CORPUSCULAR VOLUME 95 fL (80-100); PLATELET COUNT (AUTO) 43 K/uL (150-450); RED BLOOD CELL COUNT(AUTO) 2.72 MIL/uL (4.50-5.90); RED CELL DISTRIBUTION WIDTH 17.3 % (11.5-14.5)
[2022-03-22 06:33] LABS: CALCIUM, TOTAL 8.2 mg/dL (8.8-10.5); CREATININE 1.25 mg/dL (0.60-1.30); MAGNESIUM 2.3 mg/dL (1.80-2.40); POTASSIUM 3.8 mmol/L (3.5-5.1)
[2022-03-22 08:00] VITALS: BP 95/45
[2022-03-22] MEDS: QUEtiapine FUMARATE 25 MG TABLET PO SCH ×2 (08:39→20:34)
[2022-03-22] MEDS: PANTOPRAZOLE SODIUM 40 MG/VIAL IVP SCH (08:39)
[2022-03-22] MEDS: DOCUSATE SODIUM 100 MG CAPSULE PO SCH ×2 (08:40→20:34)
[2022-03-22] MEDS: MIDODRINE HCL 5 MG TABLET NG SCH ×2 (08:40→20:34)
[2022-03-22] MEDS: ETHYL ALCOHOL 62% ANTISEPTIC NASAL SANITIZER 0.6 ML AMPUL NASAL SCH ×2 (08:40→20:34)
[2022-03-22] MEDS: SODIUM CHLORIDE 0.9% 1,000 ML IV SCH (08:40)
[2022-03-22 08:42] LABS: BAND NEUTROPHILS % (MANUAL) 1 % (0-5); BLASTS, MANUAL % 8 (0-0); LYMPHOCYTES % (MANUAL) 62 % (22-44); REACTIVE LYMPHOCYTES 18 % (0-0); SEGMENTED NEUTROPHILS % 11 % (40-70)
[2022-03-22 08:47] LABS: GLUCOMETER DEV NAME(LOC) AHU.; GLUCOSE,POINT OF CARE 195 MG/DL (70-110)
[2022-03-22 12:00] VITALS: BP 110/53
[2022-03-22 16:00] VITALS: BP 104/48
[2022-03-22 20:00] VITALS: BP 105/54
[2022-03-22] MEDS: ALBUMIN HUMAN 25%-12.5GM/50ML 50 ML IV SCH (20:33)
[2022-03-22 20:34] LABS: APPEARANCE,URINE HAZY (CLEAR); BILIRUBIN,URINE NEGATIVE (NEGATIVE); GLUCOSE, URINE (UA) NEGATIVE (NEGATIVE); KETONES,URINE NEGATIVE (NEGATIVE); LEUKOCYTE ESTERASE ,URINE MODERATE (NEGATIVE); NITRATE,URINE NEGATIVE (NEGATIVE); OCCULT BLOOD,URINE LARGE (NEGATIVE); PH,URINE 5.5 (5.0-8.0); PROTEIN,URINE 100-200,SEE CONFIRM mg/dL (NEGATIVE); SPECIFIC GRAVITIY, URINE 1.018 (1.003-1.030); UROBILINOGEN,URINE <=1.0 mg/dL (<=1.0)
[2022-03-22] MEDS: MELATONIN 5 MG TABLET PO PRN (20:34)
[2022-03-22 21:02] LABS: BACTERIA,URINE Few /HPF (None Seen); RBC,URINE 51-100 /HPF (0-2); SQUAMOUS EPITHELIAL CELL,UR Rare /LPF (None Seen); SULFOSALICYLIC ACID,URINE 2+ (Negative)
[2022-03-22 21:51] LABS: GLUCOMETER DEV NAME(LOC) AHU.; GLUCOSE,POINT OF CARE 124 MG/DL (70-110)
[2022-03-22] MEDS: FentaNYL CIT 1000MCG/0.9% NACL 100 ML IV PRN (22:36)
[2022-03-23] VITALS: BP 116/55
[2022-03-23] MEDS: MetroNIDAZOLE 500 MG TABLET GT SCH ×3 (00:44→16:10)
[2022-03-23] MEDS: SODIUM CHLORIDE 0.9% 1,000 ML IV SCH ×2 (00:45→17:15)
[2022-03-23] MEDS: INSULIN LISPRO 100 UNITS/ML SQ PRN ×3 (00:46→18:14)
[2022-03-23] MEDS: ALBUMIN HUMAN 25%-12.5GM/50ML 50 ML IV SCH ×4 (02:10→20:02)
[2022-03-23 04:00] VITALS: BP 118/47
[2022-03-23] MEDS: CefTAZidime PENTAHYDRATE 2 GM in DEXTROSE 5%-WATER 50 ML IV SCH ×2 (05:37→18:05)
[2022-03-23 07:06] LABS: GLUCOSE,POINT OF CARE 103 MG/DL (70-110)
[2022-03-23 07:06] LABS: GLUCOSE,POINT OF CARE 122 MG/DL (70-110)
[2022-03-23 07:43] LABS: HEMATOCRIT 22.3 % (41-53); HEMOGLOBIN 7.2 g/dL (13.5-17.5); MEAN CORPUSCULAR HEMOGLOBIN 31.2 pg (26.0-34.0); MEAN CORPUSCULAR HGB CONC 32.2 G/dL (31.0-37.0); MEAN CORPUSCULAR VOLUME 97 fL (80-100); PLATELET COUNT (AUTO) 32 K/uL (150-450); RED CELL DISTRIBUTION WIDTH 17.9 % (11.5-14.5)
[2022-03-23 08:00] VITALS: BP 122/48
[2022-03-23 08:16] LABS: BAND NEUTROPHILS % (MANUAL) 1 % (0-5); BLASTS, MANUAL % 18 (0-0); LYMPHOCYTES % (MANUAL) 47 % (22-44); MONOCYTES % (MANUAL) 2 % (2-9); REACTIVE LYMPHOCYTES 19 % (0-0); SEGMENTED NEUTROPHILS % 13 % (40-70)
[2022-03-23] MEDS: PANTOPRAZOLE SODIUM 40 MG/VIAL IVP SCH (08:31)
[2022-03-23] MEDS: DOCUSATE SODIUM 100 MG/10 ML LIQUID UDCUP GT SCH ×2 (08:31→19:46)
[2022-03-23] MEDS: ETHYL ALCOHOL 62% ANTISEPTIC NASAL SANITIZER 0.6 ML AMPUL NASAL SCH ×2 (08:31→20:03)
[2022-03-23] MEDS: MIDODRINE HCL 5 MG TABLET NG SCH ×2 (08:32→20:02)
[2022-03-23] MEDS: QUEtiapine FUMARATE 25 MG TABLET PO SCH ×2 (08:32→20:03)
[2022-03-23 08:45] LABS: ANION GAP 8 mmol/L (8-16); CARBON DIOXIDE 26 mmol/L (22-29); CHLORIDE 105 mmol/L (98-107); CREATININE 1.11 mg/dL (0.60-1.30); GLUCOSE,RANDOM 102 mg/dL (70-110); POTASSIUM 4.1 mmol/L (3.5-5.1); SODIUM SERUM 139 mmol/L (136-145); UREA NITROGEN, BLOOD 52 mg/dL (7-18)
[2022-03-23 08:51] LABS: GLOMERULAR FILTR. RATE CALC > 60 mL/min (>60)
[2022-03-23] MEDS: PROPOFOL 1000 MG/ISO-OSM 100 ML IV PRN (11:27)
[2022-03-23] MEDS: NOREPINEPHRINE 8 MG/D5%-WATER 250 ML IV PRN (11:44)
[2022-03-23 12:00] VITALS: BP 90/47
[2022-03-23] MEDS: FentaNYL CIT 1000MCG/0.9% NACL 100 ML IV PRN (13:50)
[2022-03-23 16:00] VITALS: BP 97/41
[2022-03-23] MEDS ORDERED: DEXMEDETOMIDINE HCL 200 MCG in SODIUM CHLORIDE 0.9% 48 ML IV PRN (16:45)
[2022-03-23 17:16] LABS: GLUCOSE,POINT OF CARE 175 MG/DL (70-110)
[2022-03-23 20:00] VITALS: BP 105/43
[2022-03-23] MEDS: MELATONIN 5 MG TABLET PO PRN (20:03)
[2022-03-23] MEDS: DEXMEDETOMIDINE HCL 400 MCG in SODIUM CHLORIDE 0.9% 96 ML IV PRN (23:01)
[2022-03-24] VITALS (12 sets, daily range): BP systolic 96–125; BP diastolic 44–64
[2022-03-24] MEDS: MetroNIDAZOLE 500 MG TABLET GT SCH ×3 (00:30→15:52)
[2022-03-24 00:46] LABS: GLUCOSE,POINT OF CARE 147 MG/DL (70-110)
[2022-03-24] MEDS: PROPOFOL 1000 MG/ISO-OSM 100 ML IV PRN (01:56)
[2022-03-24] MEDS: ALBUMIN HUMAN 25%-12.5GM/50ML 50 ML IV SCH ×4 (01:57→20:33)
[2022-03-24] MEDS: FentaNYL CIT 1000MCG/0.9% NACL 100 ML IV PRN (02:36)
[2022-03-24 05:35] LABS: MEAN CORPUSCULAR HEMOGLOBIN 30.4 pg (26.0-34.0); MEAN CORPUSCULAR HGB CONC 31.8 G/dL (31.0-37.0); MEAN CORPUSCULAR VOLUME 96 fL (80-100); PLATELET COUNT (AUTO) 37 K/uL (150-450); RED BLOOD CELL COUNT(AUTO) 2.02 MIL/uL (4.50-5.90); RED CELL DISTRIBUTION WIDTH 17.6 % (11.5-14.5)
[2022-03-24] MEDS: CefTAZidime PENTAHYDRATE 2 GM in DEXTROSE 5%-WATER 50 ML IV SCH ×2 (05:41→18:15)
[2022-03-24 05:48] LABS: ALANINE AMINOTRANSFERASE 9 U/L (12-78); ALKALINE PHOSPHATASE 36 U/L (46-116); ANION GAP 8 mmol/L (8-16); ASPARTATE AMINOTRANSFERASE 12 U/L (15-37); BILIRUBIN,TOTAL 0.3 mg/dL (0.1-1.0); CALCIUM, TOTAL 7.8 mg/dL (8.8-10.5); CARBON DIOXIDE 27 mmol/L (22-29); CHLORIDE 105 mmol/L (98-107); GLUCOSE,RANDOM 99 mg/dL (70-110); HEMATOCRIT 19.3 % (41-53); HEMOGLOBIN 6.1 g/dL (13.5-17.5); POTASSIUM 3.5 mmol/L (3.5-5.1); SODIUM SERUM 140 mmol/L (136-145); TOTAL PROTEIN, SERUM 4.1 g/dL (6.4-8.2); UREA NITROGEN, BLOOD 50 mg/dL (7-18)
[2022-03-24 05:50] LABS: GLOMERULAR FILTR. RATE CALC > 60 mL/min (>60)
[2022-03-24 06:06] LABS: GLUCOSE,POINT OF CARE 84 MG/DL (70-110)
[2022-03-24 06:06] LABS: GLUCOSE,POINT OF CARE 74 MG/DL (70-110)
[2022-03-24 06:06] LABS: GLUCOSE,POINT OF CARE 70 MG/DL (70-110)
[2022-03-24 06:06] LABS: GLUCOSE,POINT OF CARE 67 MG/DL (70-110)
[2022-03-24] MEDS: POTASSIUM CHL 10 MEQ/WATER 50 ML IV PRN ×3 (06:44→13:07)
[2022-03-24] MEDS: QUEtiapine FUMARATE 25 MG TABLET PO SCH ×2 (08:06→20:34)
[2022-03-24] MEDS: DOCUSATE SODIUM 100 MG/10 ML LIQUID UDCUP GT SCH ×2 (08:06→20:34)
[2022-03-24] MEDS: PANTOPRAZOLE SODIUM 40 MG/VIAL IVP SCH (08:06)
[2022-03-24] MEDS: MIDODRINE HCL 5 MG TABLET NG SCH ×2 (08:06→20:34)
[2022-03-24] MEDS: ETHYL ALCOHOL 62% ANTISEPTIC NASAL SANITIZER 0.6 ML AMPUL NASAL SCH ×2 (08:06→20:33)
[2022-03-24] MEDS ORDERED: SODIUM CHLORIDE 0.9% 250 ML IV ONE ×2 (08:55→20:29)
[2022-03-24] MEDS: SODIUM CHLORIDE 0.9% 1,000 ML IV SCH (10:28)
[2022-03-24 12:34] LABS: BAND NEUTROPHILS % (MANUAL) 2 % (0-5); BLASTS, MANUAL % 33 (0-0); LYMPHOCYTES % (MANUAL) 42 % (22-44); MONOCYTES % (MANUAL) 3 % (2-9); REACTIVE LYMPHOCYTES 14 % (0-0); SEGMENTED NEUTROPHILS % 6 % (40-70)
[2022-03-24] MEDS: DEXMEDETOMIDINE HCL 400 MCG in SODIUM CHLORIDE 0.9% 96 ML IV PRN ×2 (15:42→22:37)
[2022-03-24 15:47] LABS: ABG A-A DIFF O2 97.7 mmHg (10-20.0); ABG BASE EXCESS -1.7 mmol/L (-2.0-3.0); ABG HCO3 23.2 mmol/L (22.0-26.0); ABG METHEMOGLOBIN 0.3 % (0.0-1.5); ABG OXYGEN SATURATION 95.5 % (95.0-98.0); ABG OXYHEMOGLOBIN 94.3 % (94.0-100.0); ABG PCO2 36 mmHg (35-45); ABG PH 7.418 (7.35-7.450); ABG TOTAL HEMOGLOBIN 8.2 G/dL (12.0-18.0); CPAP, BG 5 cm H2O; O2 DEVICE,BLOOD GAS VENTILATOR (ROOM AIR); PO2, ARTERIAL BG 74.2 mmHg (71.0-79.0); PRESSURE SUPPORT, BG 8 cm H2O; SITE, BLOOD GAS RT RADIAL; SOURCE, BLOOD GAS ARTERIAL; TEMPERATURE, FAHRENHEIT, BG 97.5 FAHREN (96.0-98.6); VENT MODE, BG CPAP (ROOM AIR)
[2022-03-24 15:48] LABS: SPONTANEOUS VT, BG 404 ml
[2022-03-24 23:36] LABS: GLUCOSE,POINT OF CARE 93 MG/DL (70-110)
[2022-03-24 23:36] LABS: GLUCOSE,POINT OF CARE 101 MG/DL (70-110)
[2022-03-25] VITALS: BP 107/48
[2022-03-25 00:11] LABS: GLUCOSE,POINT OF CARE 118 MG/DL (70-110)
[2022-03-25] MEDS: FentaNYL CIT 1000MCG/0.9% NACL 100 ML IV PRN ×2 (00:17→18:23)
[2022-03-25] MEDS: MetroNIDAZOLE 500 MG TABLET GT SCH ×3 (00:18→15:44)
[2022-03-25] MEDS: ALBUMIN HUMAN 25%-12.5GM/50ML 50 ML IV SCH ×4 (01:54→20:30)
[2022-03-25] MEDS: SODIUM CHLORIDE 0.9% 1,000 ML IV SCH (01:55)
[2022-03-25 04:00] VITALS: BP 117/49
[2022-03-25] MEDS: CefTAZidime PENTAHYDRATE 2 GM in DEXTROSE 5%-WATER 50 ML IV SCH ×2 (04:57→18:23)
[2022-03-25] MEDS: DEXMEDETOMIDINE HCL 400 MCG in SODIUM CHLORIDE 0.9% 96 ML IV PRN ×3 (05:32→20:31)
[2022-03-25 05:48] LABS: HEMATOCRIT 21.8 % (41-53); HEMOGLOBIN 7.3 g/dL (13.5-17.5); MEAN CORPUSCULAR HEMOGLOBIN 30.9 pg (26.0-34.0); MEAN CORPUSCULAR HGB CONC 33.5 G/dL (31.0-37.0); MEAN CORPUSCULAR VOLUME 92 fL (80-100); PLATELET COUNT (AUTO) 50 K/uL (150-450); RED BLOOD CELL COUNT(AUTO) 2.36 MIL/uL (4.50-5.90); RED CELL DISTRIBUTION WIDTH 18.3 % (11.5-14.5)
[2022-03-25 05:53] LABS: ANION GAP 7 mmol/L (8-16); CALCIUM, TOTAL 7.8 mg/dL (8.8-10.5); CARBON DIOXIDE 25 mmol/L (22-29); CHLORIDE 108 mmol/L (98-107); CREATININE 1.05 mg/dL (0.60-1.30); GLUCOSE,RANDOM 136 mg/dL (70-110); POTASSIUM 4.1 mmol/L (3.5-5.1); SODIUM SERUM 140 mmol/L (136-145); UREA NITROGEN, BLOOD 44 mg/dL (7-18)
[2022-03-25 06:11] LABS: GLOMERULAR FILTR. RATE CALC > 60 mL/min (>60)
[2022-03-25 06:11] LABS: GLUCOSE,POINT OF CARE 122 MG/DL (70-110)
[2022-03-25 07:19] LABS: BAND NEUTROPHILS % (MANUAL) 2 % (0-5); BLASTS, MANUAL % 30 (0-0); LYMPHOCYTES % (MANUAL) 41 % (22-44); MONOCYTES % (MANUAL) 4 % (2-9); REACTIVE LYMPHOCYTES 15 % (0-0); SEGMENTED NEUTROPHILS % 8 % (40-70)
[2022-03-25 08:00] VITALS: BP 114/45
[2022-03-25] MEDS: PANTOPRAZOLE SODIUM 40 MG/VIAL IVP SCH (08:53)
[2022-03-25] MEDS: ETHYL ALCOHOL 62% ANTISEPTIC NASAL SANITIZER 0.6 ML AMPUL NASAL SCH ×2 (08:53→20:59)
[2022-03-25] MEDS: QUEtiapine FUMARATE 25 MG TABLET PO SCH ×2 (08:53→20:59)
[2022-03-25] MEDS: MIDODRINE HCL 5 MG TABLET NG SCH ×2 (08:54→20:59)
[2022-03-25] MEDS: DOCUSATE SODIUM 100 MG/10 ML LIQUID UDCUP GT SCH ×2 (08:54→20:59)
[2022-03-25 12:00] VITALS: BP 125/57
[2022-03-25] MEDS: INSULIN LISPRO 100 UNITS/ML SQ PRN ×2 (12:05→18:24)
[2022-03-25] MEDS ORDERED: RINGERS SOLUTION,LACTATED 500 ML IV ONE (13:00)
[2022-03-25 13:12] LABS: ABG BASE EXCESS -3.5 mmol/L (-2.0-3.0); ABG CARBOXYHEMOGLOBIN 0.6 % (0.0-1.5); ABG HCO3 21.8 mmol/L (22.0-26.0); ABG METHEMOGLOBIN 0.3 % (0.0-1.5); ABG OXYGEN CONTENT 12.1 mL/dL (15.0-23.0); ABG OXYGEN SATURATION 96.6 % (95.0-98.0); ABG OXYHEMOGLOBIN 95.7 % (94.0-100.0); ABG PCO2 36 mmHg (35-45); ABG PH 7.391 (7.35-7.450); ABG TOTAL HEMOGLOBIN 8.9 G/dL (12.0-18.0); PEEP,BG 0 cm H2O; PO2, ARTERIAL BG 83.4 mmHg (71.0-79.0); PRESSURE SUPPORT, BG 8 cm H2O; SITE, BLOOD GAS RT RADIAL; SOURCE, BLOOD GAS ARTERIAL; SPONTANEOUS VT, BG 484 ml; TEMPERATURE, FAHRENHEIT, BG 97.5 FAHREN (96.0-98.6); VENT MODE, BG Press. Support Vent. (ROOM AIR)
[2022-03-25 13:36] LABS: GLUCOSE,POINT OF CARE 127 MG/DL (70-110)
[2022-03-25] MEDS: RINGERS SOLUTION,LACTATED 1,000 ML IV SCH (15:44)
[2022-03-25 16:00] VITALS: BP 118/42
[2022-03-25 20:00] VITALS: BP 134/51
[2022-03-25 21:41] LABS: GLUCOSE,POINT OF CARE 122 MG/DL (70-110)
[2022-03-25] MEDS ORDERED: SODIUM CHLORIDE 0.9% 250 ML IV ONE (22:43)
[2022-03-26] VITALS: BP 132/56
[2022-03-26] MEDS: MetroNIDAZOLE 500 MG TABLET GT SCH ×3 (00:19→15:03)
[2022-03-26] MEDS: INSULIN LISPRO 100 UNITS/ML SQ PRN ×3 (00:20→17:30)
[2022-03-26] MEDS: ALBUMIN HUMAN 25%-12.5GM/50ML 50 ML IV SCH ×4 (02:04→20:40)
[2022-03-26] MEDS: DEXMEDETOMIDINE HCL 400 MCG in SODIUM CHLORIDE 0.9% 96 ML IV PRN ×3 (03:45→17:30)
[2022-03-26 04:00] VITALS: BP 130/59
[2022-03-26 05:04] LABS: HEMATOCRIT 24.4 % (41-53); MEAN CORPUSCULAR HEMOGLOBIN 30.4 pg (26.0-34.0); MEAN CORPUSCULAR VOLUME 92 fL (80-100); PLATELET COUNT (AUTO) 44 K/uL (150-450); RED BLOOD CELL COUNT(AUTO) 2.64 MIL/uL (4.50-5.90); RED CELL DISTRIBUTION WIDTH 18.4 % (11.5-14.5)
[2022-03-26 05:10] LABS: ALANINE AMINOTRANSFERASE 12 U/L (12-78); ALBUMIN 2.3 g/dL (3.4-5.0); ALKALINE PHOSPHATASE 38 U/L (46-116); ANION GAP 7 mmol/L (8-16); ASPARTATE AMINOTRANSFERASE 12 U/L (15-37); BILIRUBIN,TOTAL 0.6 mg/dL (0.1-1.0); CARBON DIOXIDE 24 mmol/L (22-29); CHLORIDE 109 mmol/L (98-107); CREATININE 1.06 mg/dL (0.60-1.30); GLUCOSE,RANDOM 118 mg/dL (70-110); POTASSIUM 3.5 mmol/L (3.5-5.1); SODIUM SERUM 140 mmol/L (136-145); TOTAL PROTEIN, SERUM 4.4 g/dL (6.4-8.2); UREA NITROGEN, BLOOD 45 mg/dL (7-18)
[2022-03-26 05:22] LABS: GLOMERULAR FILTR. RATE CALC > 60 mL/min (>60)
[2022-03-26] MEDS: CefTAZidime PENTAHYDRATE 2 GM in DEXTROSE 5%-WATER 50 ML IV SCH ×2 (05:29→17:30)
[2022-03-26] MEDS: RINGERS SOLUTION,LACTATED 1,000 ML IV SCH ×2 (05:30→23:11)
[2022-03-26] MEDS ORDERED: SODIUM CHLORIDE 0.9% 250 ML IV ONE (05:33)
[2022-03-26 05:36] LABS: BAND NEUTROPHILS % (MANUAL) 0 % (0-5)
[2022-03-26 05:42] LABS: BLASTS, MANUAL % 47 (0-0); EOSINOPHILS % (MANUAL) 1 % (1-6); LYMPHOCYTES % (MANUAL) 33 % (22-44); MONOCYTES % (MANUAL) 3 % (2-9); REACTIVE LYMPHOCYTES 9 % (0-0); SEGMENTED NEUTROPHILS % 7 % (40-70)
[2022-03-26 06:16] LABS: GLUCOSE,POINT OF CARE 142 MG/DL (70-110)
[2022-03-26 08:00] VITALS: BP 139/65
[2022-03-26] MEDS: PANTOPRAZOLE SODIUM 40 MG/VIAL IVP SCH (08:19)
[2022-03-26] MEDS: QUEtiapine FUMARATE 25 MG TABLET PO SCH ×2 (08:20→20:40)
[2022-03-26] MEDS: ETHYL ALCOHOL 62% ANTISEPTIC NASAL SANITIZER 0.6 ML AMPUL NASAL SCH ×2 (08:20→20:40)
[2022-03-26] MEDS: MIDODRINE HCL 5 MG TABLET NG SCH ×2 (08:20→20:40)
[2022-03-26] MEDS: FentaNYL CIT 1000MCG/0.9% NACL 100 ML IV PRN (08:22)
[2022-03-26] MEDS: DOCUSATE SODIUM 100 MG/10 ML LIQUID UDCUP GT SCH ×2 (08:42→21:00)
[2022-03-26 12:00] VITALS: BP 161/68
[2022-03-26 16:00] VITALS: BP 141/59
[2022-03-26 17:37] LABS: GLUCOSE,POINT OF CARE 110 MG/DL (70-110)
[2022-03-26 20:00] VITALS: BP 100/49
[2022-03-26] MEDS: MELATONIN 5 MG TABLET PO PRN (20:41)
[2022-03-26] MEDS: POTASSIUM CHL 10 MEQ/WATER 50 ML IV PRN ×2 (22:48→23:24)
[2022-03-27] VITALS: BP 123/56
[2022-03-27] MEDS: MetroNIDAZOLE 500 MG TABLET GT SCH ×2 (00:09→08:32)
[2022-03-27] MEDS: INSULIN LISPRO 100 UNITS/ML SQ PRN ×4 (00:12→23:20)
[2022-03-27 00:36] LABS: GLUCOSE,POINT OF CARE 128 MG/DL (70-110)
[2022-03-27] MEDS: FentaNYL CIT 1000MCG/0.9% NACL 100 ML IV PRN ×2 (00:50→08:35)
[2022-03-27] MEDS: ALBUMIN HUMAN 25%-12.5GM/50ML 50 ML IV SCH ×4 (02:51→20:22)
[2022-03-27] MEDS: DEXMEDETOMIDINE HCL 400 MCG in SODIUM CHLORIDE 0.9% 96 ML IV PRN ×2 (02:57→18:47)
[2022-03-27 04:00] VITALS: BP 116/68
[2022-03-27 04:59] LABS: MEAN CORPUSCULAR HEMOGLOBIN 30.5 pg (26.0-34.0); MEAN CORPUSCULAR HGB CONC 33.1 G/dL (31.0-37.0); MEAN CORPUSCULAR VOLUME 92 fL (80-100); PLATELET COUNT (AUTO) 40 K/uL (150-450); RED BLOOD CELL COUNT(AUTO) 2.28 MIL/uL (4.50-5.90); RED CELL DISTRIBUTION WIDTH 18.4 % (11.5-14.5)
[2022-03-27 05:09] LABS: CREATININE 1.17 mg/dL (0.60-1.30); POTASSIUM 3.7 mmol/L (3.5-5.1)
[2022-03-27 05:47] LABS: BAND NEUTROPHILS % (MANUAL) 1 % (0-5); BASOPHILS % (MANUAL) 1 % (0-2); BLASTS, MANUAL % 25 (0-0); LYMPHOCYTES % (MANUAL) 42 % (22-44); REACTIVE LYMPHOCYTES 6 % (0-0); SEGMENTED NEUTROPHILS % 25 % (40-70)
[2022-03-27] MEDS: CefTAZidime PENTAHYDRATE 2 GM in DEXTROSE 5%-WATER 50 ML IV SCH (05:54)
[2022-03-27 06:41] LABS: GLUCOMETER DEV NAME(LOC) AHU.; GLUCOSE,POINT OF CARE 125 MG/DL (70-110)
[2022-03-27 06:41] LABS: GLUCOMETER DEV NAME(LOC) AHU.; GLUCOSE,POINT OF CARE 140 MG/DL (70-110)
[2022-03-27 06:41] LABS: GLUCOMETER DEV NAME(LOC) AHU.; GLUCOSE,POINT OF CARE 166 MG/DL (70-110)
[2022-03-27 08:00] VITALS: BP 132/58
[2022-03-27] MEDS: QUEtiapine FUMARATE 25 MG TABLET PO SCH ×2 (08:32→20:22)
[2022-03-27] MEDS: ETHYL ALCOHOL 62% ANTISEPTIC NASAL SANITIZER 0.6 ML AMPUL NASAL SCH ×2 (08:32→20:22)
[2022-03-27] MEDS: MIDODRINE HCL 5 MG TABLET NG SCH ×2 (08:32→20:22)
[2022-03-27] MEDS: PANTOPRAZOLE SODIUM 40 MG/VIAL IVP SCH (08:33)
[2022-03-27] MEDS: DOCUSATE SODIUM 100 MG/10 ML LIQUID UDCUP GT SCH ×2 (08:34→20:22)
[2022-03-27 12:00] VITALS: BP 133/48
[2022-03-27 16:00] VITALS: BP 117/49
[2022-03-27 16:56] LABS: GLUCOSE,POINT OF CARE 142 MG/DL (70-110)
[2022-03-27] MEDS: RINGERS SOLUTION,LACTATED 1,000 ML IV SCH (17:02)
[2022-03-27 19:41] LABS: GLUCOSE,POINT OF CARE 106 MG/DL (70-110)
[2022-03-27 19:47] LABS: SODIUM,URINE RANDOM 52 mmol/l (20-110); UREA NITROGEN,URINE RANDOM 367 mg/dL (350-1000)
[2022-03-27 20:00] VITALS: BP 109/54
[2022-03-28] VITALS: BP 123/76
[2022-03-28] MEDS ORDERED: SODIUM CHLORIDE 0.9% 250 ML IV ONE (02:21)
[2022-03-28] MEDS: ALBUMIN HUMAN 25%-12.5GM/50ML 50 ML IV SCH ×4 (02:23→20:05)
[2022-03-28 04:00] VITALS: BP 109/54
[2022-03-28] MEDS: DEXMEDETOMIDINE HCL 400 MCG in SODIUM CHLORIDE 0.9% 96 ML IV PRN ×2 (06:06→17:57)
[2022-03-28] MEDS: INSULIN LISPRO 100 UNITS/ML SQ PRN (06:07)
[2022-03-28 06:11] LABS: GLUCOMETER DEV NAME(LOC) AHU.; GLUCOSE,POINT OF CARE 163 MG/DL (70-110)
[2022-03-28 06:31] LABS: HEMATOCRIT 23.8 % (41-53); HEMOGLOBIN 7.6 g/dL (13.5-17.5); MEAN CORPUSCULAR HEMOGLOBIN 29.9 pg (26.0-34.0); MEAN CORPUSCULAR HGB CONC 31.9 G/dL (31.0-37.0); MEAN CORPUSCULAR VOLUME 94 fL (80-100); PLATELET COUNT (AUTO) 28 K/uL (150-450); RED BLOOD CELL COUNT(AUTO) 2.54 MIL/uL (4.50-5.90); RED CELL DISTRIBUTION WIDTH 18.9 % (11.5-14.5)
[2022-03-28 06:40] LABS: ALBUMIN 2.6 g/dL (3.4-5.0); BILIRUBIN,TOTAL 0.6 mg/dL (0.1-1.0); CALCIUM, TOTAL 8.3 mg/dL (8.8-10.5); CREATININE 1.32 mg/dL (0.60-1.30); POTASSIUM 3.9 mmol/L (3.5-5.1); TOTAL PROTEIN, SERUM 4.5 g/dL (6.4-8.2)
[2022-03-28 07:40] LABS: BAND NEUTROPHILS % (MANUAL) 1 % (0-5); BLASTS, MANUAL % 26 (0-0); LYMPHOCYTES % (MANUAL) 41 % (22-44); MONOCYTES % (MANUAL) 1 % (2-9); REACTIVE LYMPHOCYTES 8 % (0-0); SEGMENTED NEUTROPHILS % 23 % (40-70)
[2022-03-28 08:00] VITALS: BP 118/79
[2022-03-28] MEDS: RINGERS SOLUTION,LACTATED 1,000 ML IV SCH (09:01)
[2022-03-28] MEDS: ETHYL ALCOHOL 62% ANTISEPTIC NASAL SANITIZER 0.6 ML AMPUL NASAL SCH ×2 (09:02→20:05)
[2022-03-28] MEDS: DOCUSATE SODIUM 100 MG/10 ML LIQUID UDCUP GT SCH ×2 (09:02→20:06)
[2022-03-28] MEDS: MIDODRINE HCL 5 MG TABLET NG SCH ×2 (09:03→20:06)
[2022-03-28] MEDS: PANTOPRAZOLE SODIUM 40 MG/VIAL IVP SCH (09:03)
[2022-03-28] MEDS: QUEtiapine FUMARATE 25 MG TABLET PO SCH ×2 (09:03→20:06)
[2022-03-28] MEDS: FentaNYL CIT 1000MCG/0.9% NACL 100 ML IV PRN (11:10)
[2022-03-28 12:00] VITALS: BP 105/45
[2022-03-28 16:00] VITALS: BP 92/42
[2022-03-28 20:00] VITALS: BP 85/63
[2022-03-29] VITALS (15 sets, daily range): BP systolic 108–146; BP diastolic 46–106
[2022-03-29] MEDS: INSULIN LISPRO 100 UNITS/ML SQ PRN ×2 (00:34→05:49)
[2022-03-29 01:36] LABS: GLUCOSE,POINT OF CARE 202 MG/DL (70-110)
[2022-03-29] MEDS: ALBUMIN HUMAN 25%-12.5GM/50ML 50 ML IV SCH ×4 (01:54→21:07)
[2022-03-29] MEDS: RINGERS SOLUTION,LACTATED 1,000 ML IV SCH ×2 (02:17→19:30)
[2022-03-29] MEDS: DEXMEDETOMIDINE HCL 400 MCG in SODIUM CHLORIDE 0.9% 96 ML IV PRN ×2 (05:15→16:28)
[2022-03-29] MEDS: FentaNYL CIT 1000MCG/0.9% NACL 100 ML IV PRN (05:16)
[2022-03-29 05:55] LABS: CALCIUM, TOTAL 8.2 mg/dL (8.8-10.5); CREATININE 1.43 mg/dL (0.60-1.30); POTASSIUM 3.4 mmol/L (3.5-5.1)
[2022-03-29] MEDS: POTASSIUM CHL 10 MEQ/WATER 50 ML IV PRN ×3 (06:04→09:15)
[2022-03-29 06:08] LABS: HEMATOCRIT 21.8 % (41-53); HEMOGLOBIN 7.2 g/dL (13.5-17.5); MEAN CORPUSCULAR HEMOGLOBIN 30.6 pg (26.0-34.0); MEAN CORPUSCULAR VOLUME 93 fL (80-100); PLATELET COUNT (AUTO) 31 K/uL (150-450); RED BLOOD CELL COUNT(AUTO) 2.36 MIL/uL (4.50-5.90); RED CELL DISTRIBUTION WIDTH 18.4 % (11.5-14.5)
[2022-03-29 06:16] LABS: GLUCOSE,POINT OF CARE 113 MG/DL (70-110)
[2022-03-29 06:16] LABS: GLUCOSE,POINT OF CARE 108 MG/DL (70-110)
[2022-03-29 06:17] LABS: GLUCOSE,POINT OF CARE 171 MG/DL (70-110)
[2022-03-29] MEDS: ETHYL ALCOHOL 62% ANTISEPTIC NASAL SANITIZER 0.6 ML AMPUL NASAL SCH ×2 (08:17→21:07)
[2022-03-29] MEDS: MIDODRINE HCL 5 MG TABLET NG SCH ×2 (08:17→21:07)
[2022-03-29] MEDS: QUEtiapine FUMARATE 25 MG TABLET PO SCH ×2 (08:17→21:07)
[2022-03-29] MEDS: DOCUSATE SODIUM 100 MG/10 ML LIQUID UDCUP GT SCH ×2 (08:17→21:00)
[2022-03-29] MEDS: PANTOPRAZOLE SODIUM 40 MG/VIAL IVP SCH (08:17)
[2022-03-29 11:04] LABS: BAND NEUTROPHILS % (MANUAL) 0 % (0-5)
[2022-03-29 11:07] LABS: BLASTS, MANUAL % 20 (0-0); LYMPHOCYTES % (MANUAL) 60 % (22-44); MONOCYTES % (MANUAL) 5 % (2-9); REACTIVE LYMPHOCYTES 5 % (0-0); SEGMENTED NEUTROPHILS % 10 % (40-70)
[2022-03-29] MEDS ORDERED: SODIUM CHLORIDE 0.9% 250 ML IV ONE ×2 (17:56→20:08)
[2022-03-29 18:46] LABS: GLUCOSE,POINT OF CARE 144 MG/DL (70-110)
[2022-03-29 23:15] LABS: MEAN CORPUSCULAR HEMOGLOBIN 30.3 pg (26.0-34.0); RED CELL DISTRIBUTION WIDTH 20.1 % (11.5-14.5)
[2022-03-29 23:17] LABS: HEMATOCRIT 25.9 % (41-53); HEMOGLOBIN 8.7 g/dL (13.5-17.5); MEAN CORPUSCULAR HGB CONC 33.5 G/dL (31.0-37.0); MEAN CORPUSCULAR VOLUME 90 fL (80-100); PLATELET COUNT (AUTO) 33 K/uL (150-450); RED BLOOD CELL COUNT(AUTO) 2.86 MIL/uL (4.50-5.90)
[2022-03-29 23:29] LABS: INR 1.3 (0.9-1.1); PROTHROMBIN TIME 13.4 SEC (9.4-11.6)
[2022-03-29 23:32] LABS: BAND NEUTROPHILS % (MANUAL) 0 % (0-5)
[2022-03-29 23:41] LABS: BLASTS, MANUAL % 22 (0-0); LYMPHOCYTES % (MANUAL) 65 % (22-44); MONOCYTES % (MANUAL) 2 % (2-9); REACTIVE LYMPHOCYTES 2 % (0-0); SEGMENTED NEUTROPHILS % 9 % (40-70)
[2022-03-30] VITALS (15 sets, daily range): BP systolic 103–158; BP diastolic 46–74
[2022-03-30 00:47] LABS: GLUCOSE,POINT OF CARE 117 MG/DL (70-110)
[2022-03-30 00:47] LABS: GLUCOSE,POINT OF CARE 130 MG/DL (70-110)
[2022-03-30] MEDS ORDERED: SODIUM CHLORIDE 0.9% 250 ML IV ONE ×2 (01:50→13:27)
[2022-03-30] MEDS: ALBUMIN HUMAN 25%-12.5GM/50ML 50 ML IV SCH ×4 (03:30→20:15)
[2022-03-30] MEDS: DEXMEDETOMIDINE HCL 400 MCG in SODIUM CHLORIDE 0.9% 96 ML IV PRN ×2 (05:39→20:20)
[2022-03-30] MEDS: FentaNYL CIT 1000MCG/0.9% NACL 100 ML IV PRN ×2 (06:00→18:13)
[2022-03-30 07:33] LABS: HEMATOCRIT 27.1 % (41-53); HEMOGLOBIN 9.1 g/dL (13.5-17.5); MEAN CORPUSCULAR HEMOGLOBIN 30.2 pg (26.0-34.0); MEAN CORPUSCULAR HGB CONC 33.6 G/dL (31.0-37.0); MEAN CORPUSCULAR VOLUME 90 fL (80-100); PLATELET COUNT (AUTO) 35 K/uL (150-450); RED BLOOD CELL COUNT(AUTO) 3.01 MIL/uL (4.50-5.90); RED CELL DISTRIBUTION WIDTH 20.3 % (11.5-14.5)
[2022-03-30 07:44] LABS: BAND NEUTROPHILS % (MANUAL) 0 % (0-5)
[2022-03-30 08:00] LABS: CALCIUM, TOTAL 8.3 mg/dL (8.8-10.5); CREATININE 1.46 mg/dL (0.60-1.30); POTASSIUM 3.8 mmol/L (3.5-5.1)
[2022-03-30] MEDS: QUEtiapine FUMARATE 25 MG TABLET PO SCH ×2 (08:22→21:55)
[2022-03-30] MEDS: MIDODRINE HCL 5 MG TABLET NG SCH ×2 (08:22→21:55)
[2022-03-30] MEDS: ETHYL ALCOHOL 62% ANTISEPTIC NASAL SANITIZER 0.6 ML AMPUL NASAL SCH ×2 (08:22→21:55)
[2022-03-30] MEDS: DOCUSATE SODIUM 100 MG/10 ML LIQUID UDCUP GT SCH ×2 (08:22→21:00)
[2022-03-30] MEDS: PANTOPRAZOLE SODIUM 40 MG/VIAL IVP SCH (08:22)
[2022-03-30 09:11] LABS: BLASTS, MANUAL % 26 (0-0); LYMPHOCYTES % (MANUAL) 56 % (22-44); MONOCYTES % (MANUAL) 3 % (2-9); REACTIVE LYMPHOCYTES 3 % (0-0); SEGMENTED NEUTROPHILS % 12 % (40-70)
[2022-03-30 11:01] LABS: GLUCOSE,POINT OF CARE 127 MG/DL (70-110)
[2022-03-30] MEDS: RINGERS SOLUTION,LACTATED 1,000 ML IV SCH (11:41)
[2022-03-30] MEDS ORDERED: ROCURONIUM BROMIDE 10 MG/ML 5 ML VIAL IVP ONE (13:15)
[2022-03-30] MEDS ORDERED: DEXTROSE IV ONE (13:44)
[2022-03-30] MEDS ORDERED: NOREPINEPHRINE IV ONE (13:44)
[2022-03-30] MEDS: PROPOFOL 1000 MG/ISO-OSM 100 ML IV PRN (15:47)
[2022-03-30 18:26] LABS: GLUCOSE,POINT OF CARE 115 MG/DL (70-110)
[2022-03-30 19:01] LABS: GLUCOSE,POINT OF CARE 131 MG/DL (70-110)
[2022-03-31] VITALS: BP 93/46
[2022-03-31] MEDS: ALBUMIN HUMAN 25%-12.5GM/50ML 50 ML IV SCH ×4 (01:40→20:21)
[2022-03-31] MEDS: FentaNYL CIT 1000MCG/0.9% NACL 100 ML IV PRN ×2 (03:00→12:47)
[2022-03-31 04:00] VITALS: BP 112/47
[2022-03-31] MEDS: RINGERS SOLUTION,LACTATED 1,000 ML IV SCH ×2 (04:33→20:23)
[2022-03-31 05:41] LABS: GLUCOSE,POINT OF CARE 100 MG/DL (70-110)
[2022-03-31] MEDS: INSULIN LISPRO 100 UNITS/ML SQ PRN ×2 (06:05→17:37)
[2022-03-31 06:11] LABS: CALCIUM, TOTAL 7.9 mg/dL (8.8-10.5); CREATININE 1.4 mg/dL (0.60-1.30); POTASSIUM 3.7 mmol/L (3.5-5.1)
[2022-03-31 06:17] LABS: HEMATOCRIT 23.4 % (41-53); HEMOGLOBIN 7.7 g/dL (13.5-17.5); MEAN CORPUSCULAR HEMOGLOBIN 29.7 pg (26.0-34.0); MEAN CORPUSCULAR HGB CONC 32.7 G/dL (31.0-37.0); MEAN CORPUSCULAR VOLUME 91 fL (80-100); PLATELET COUNT (AUTO) 37 K/uL (150-450); RED BLOOD CELL COUNT(AUTO) 2.58 MIL/uL (4.50-5.90); RED CELL DISTRIBUTION WIDTH 20.2 % (11.5-14.5)
[2022-03-31 07:30] LABS: BAND NEUTROPHILS % (MANUAL) 3 % (0-5); BLASTS, MANUAL % 40 (0-0); LYMPHOCYTES % (MANUAL) 38 % (22-44); MONOCYTES % (MANUAL) 2 % (2-9); REACTIVE LYMPHOCYTES 5 % (0-0); SEGMENTED NEUTROPHILS % 12 % (40-70)
[2022-03-31 08:00] VITALS: BP 124/46
[2022-03-31] MEDS: PANTOPRAZOLE SODIUM 40 MG/VIAL IVP SCH (08:20)
[2022-03-31] MEDS: MIDODRINE HCL 5 MG TABLET NG SCH ×2 (08:20→20:21)
[2022-03-31] MEDS: QUEtiapine FUMARATE 25 MG TABLET PO SCH ×2 (08:20→20:21)
[2022-03-31] MEDS: ETHYL ALCOHOL 62% ANTISEPTIC NASAL SANITIZER 0.6 ML AMPUL NASAL SCH ×2 (08:20→20:21)
[2022-03-31] MEDS: DOCUSATE SODIUM 100 MG/10 ML LIQUID UDCUP GT SCH ×2 (08:20→20:24)
[2022-03-31] MEDS: DEXMEDETOMIDINE HCL 400 MCG in SODIUM CHLORIDE 0.9% 96 ML IV PRN ×2 (08:38→22:58)
[2022-03-31 09:17] LABS: GLUCOSE,POINT OF CARE 133 MG/DL (70-110)
[2022-03-31 12:00] VITALS: BP 123/53
[2022-03-31 16:00] VITALS: BP 105/48
[2022-03-31 17:51] LABS: GLUCOSE,POINT OF CARE 112 MG/DL (70-110)
[2022-03-31] MEDS ORDERED: FUROSEMIDE 40 MG/4 ML VIAL IVP ONE (18:45)
[2022-03-31 20:00] VITALS: BP 105/47
[2022-03-31] MEDS ORDERED: FentaNYL 50 MCG/HOUR PATCH TD SCH (20:00)
[2022-03-31] MEDS: MELATONIN 5 MG TABLET PO PRN (20:21)
[2022-03-31] MEDS: LACTOBACILLUS ACIDOPHILUS/BULGARICUS GRANULES PACKET PO SCH (20:22)
[2022-03-31 22:36] LABS: GLUCOSE,POINT OF CARE 131 MG/DL (70-110)
[2022-04-01] VITALS: BP 105/45
[2022-04-01] MEDS: FentaNYL CIT 1000MCG/0.9% NACL 100 ML IV PRN (00:27)
[2022-04-01] MEDS: ALBUMIN HUMAN 25%-12.5GM/50ML 50 ML IV SCH ×4 (03:05→20:34)
[2022-04-01 04:00] VITALS: BP 108/45
[2022-04-01 06:07] LABS: HEMATOCRIT 21.4 % (41-53); HEMOGLOBIN 7.1 g/dL (13.5-17.5); MEAN CORPUSCULAR HEMOGLOBIN 30.1 pg (26.0-34.0); MEAN CORPUSCULAR HGB CONC 33.2 G/dL (31.0-37.0); MEAN CORPUSCULAR VOLUME 91 fL (80-100); PLATELET COUNT (AUTO) 33 K/uL (150-450); RED BLOOD CELL COUNT(AUTO) 2.36 MIL/uL (4.50-5.90); RED CELL DISTRIBUTION WIDTH 20.2 % (11.5-14.5)
[2022-04-01 06:10] LABS: CREATININE 1.58 mg/dL (0.60-1.30); POTASSIUM 3.7 mmol/L (3.5-5.1)
[2022-04-01 06:11] LABS: BAND NEUTROPHILS % (MANUAL) 0 % (0-5)
[2022-04-01 06:24] LABS: BLASTS, MANUAL % 49 (0-0); LYMPHOCYTES % (MANUAL) 37 % (22-44); MYELOCYTES % 1 % (0-0); REACTIVE LYMPHOCYTES 3 % (0-0); SEGMENTED NEUTROPHILS % 10 % (40-70)
[2022-04-01 07:17] LABS: GLUCOSE,POINT OF CARE 117 MG/DL (70-110)
[2022-04-01 07:17] LABS: GLUCOSE,POINT OF CARE 107 MG/DL (70-110)
[2022-04-01 08:00] VITALS: BP 113/44
[2022-04-01] MEDS: ETHYL ALCOHOL 62% ANTISEPTIC NASAL SANITIZER 0.6 ML AMPUL NASAL SCH ×2 (08:27→20:34)
[2022-04-01] MEDS: MULTIVITAMINS WITH MINERALS, THERAPEUTIC 15 ML UDCUP PEG SCH (08:27)
[2022-04-01] MEDS: PANTOPRAZOLE SODIUM 40 MG/VIAL IVP SCH (08:27)
[2022-04-01] MEDS: DOCUSATE SODIUM 100 MG/10 ML LIQUID UDCUP GT SCH ×2 (08:28→20:34)
[2022-04-01] MEDS: FentaNYL 50 MCG/HOUR PATCH TD SCH (08:30)
[2022-04-01] MEDS: MIDODRINE HCL 5 MG TABLET NG SCH ×2 (08:31→20:34)
[2022-04-01] MEDS: QUEtiapine FUMARATE 25 MG TABLET PO SCH ×2 (08:31→20:34)
[2022-04-01] MEDS: LACTOBACILLUS ACIDOPHILUS/BULGARICUS GRANULES PACKET PO SCH ×2 (08:31→20:34)
[2022-04-01 12:00] VITALS: BP 125/57
[2022-04-01] MEDS: RINGERS SOLUTION,LACTATED 1,000 ML IV SCH (15:05)
[2022-04-01 16:00] VITALS: BP 129/58
[2022-04-01] MEDS: INSULIN LISPRO 100 UNITS/ML SQ PRN (17:41)
[2022-04-01] MEDS: DEXMEDETOMIDINE HCL 400 MCG in SODIUM CHLORIDE 0.9% 96 ML IV PRN (17:43)
[2022-04-01 20:00] VITALS: BP 128/61
[2022-04-01] MEDS: MELATONIN 5 MG TABLET PO PRN (20:34)
[2022-04-01 23:31] LABS: GLUCOSE,POINT OF CARE 117 MG/DL (70-110)
[2022-04-01 23:31] LABS: GLUCOSE,POINT OF CARE 132 MG/DL (70-110)
[2022-04-02] VITALS: BP 136/61
[2022-04-02] MEDS: ALBUMIN HUMAN 25%-12.5GM/50ML 50 ML IV SCH ×4 (02:51→20:12)
[2022-04-02 03:06] LABS: GLUCOSE,POINT OF CARE 118 MG/DL (70-110)
[2022-04-02 04:00] VITALS: BP 130/58
[2022-04-02] MEDS: INSULIN LISPRO 100 UNITS/ML SQ PRN ×2 (06:09→12:16)
[2022-04-02 06:51] LABS: HEMATOCRIT 24.4 % (41-53); HEMOGLOBIN 7.8 g/dL (13.5-17.5); MEAN CORPUSCULAR HEMOGLOBIN 29.5 pg (26.0-34.0); MEAN CORPUSCULAR HGB CONC 32.1 G/dL (31.0-37.0); MEAN CORPUSCULAR VOLUME 92 fL (80-100); RED BLOOD CELL COUNT(AUTO) 2.66 MIL/uL (4.50-5.90); RED CELL DISTRIBUTION WIDTH 19.9 % (11.5-14.5)
[2022-04-02 06:58] LABS: CALCIUM, TOTAL 8.3 mg/dL (8.8-10.5); CREATININE 1.7 mg/dL (0.60-1.30); POTASSIUM 3.7 mmol/L (3.5-5.1)
[2022-04-02] MEDS: DEXMEDETOMIDINE HCL 400 MCG in SODIUM CHLORIDE 0.9% 96 ML IV PRN (07:01)
[2022-04-02 08:00] VITALS: BP_SYST 117; BP_SYST 137; BP_DIAS 60; BP_DIAS 85
[2022-04-02 08:27] LABS: PLATELET COUNT (AUTO) 31 K/uL (150-450)
[2022-04-02] MEDS: DOCUSATE SODIUM 100 MG/10 ML LIQUID UDCUP GT SCH ×2 (09:00→20:12)
[2022-04-02] MEDS: RINGERS SOLUTION,LACTATED 1,000 ML IV SCH (09:25)
[2022-04-02] MEDS: PANTOPRAZOLE SODIUM 40 MG/VIAL IVP SCH (09:28)
[2022-04-02] MEDS: ETHYL ALCOHOL 62% ANTISEPTIC NASAL SANITIZER 0.6 ML AMPUL NASAL SCH ×2 (09:28→20:12)
[2022-04-02] MEDS: LACTOBACILLUS ACIDOPHILUS/BULGARICUS GRANULES PACKET PO SCH ×2 (09:29→20:12)
[2022-04-02] MEDS: MIDODRINE HCL 5 MG TABLET NG SCH ×2 (09:29→20:12)
[2022-04-02] MEDS: QUEtiapine FUMARATE 25 MG TABLET PO SCH ×2 (09:29→20:12)
[2022-04-02] MEDS: MULTIVITAMINS WITH MINERALS, THERAPEUTIC 15 ML UDCUP PEG SCH (09:29)
[2022-04-02 09:55] LABS: BAND NEUTROPHILS % (MANUAL) 3 % (0-5); BLASTS, MANUAL % 26 (0-0); LYMPHOCYTES % (MANUAL) 56 % (22-44); MONOCYTES % (MANUAL) 4 % (2-9); SEGMENTED NEUTROPHILS % 11 % (40-70)
[2022-04-02 09:56] LABS: WBC MORPHOLOGY SMUDGE CELLS PRESENT
[2022-04-02 10:56] LABS: GLUCOSE,POINT OF CARE 140 MG/DL (70-110)
[2022-04-02 12:00] VITALS: BP 139/56
[2022-04-02 13:16] LABS: GLUCOSE,POINT OF CARE 143 MG/DL (70-110)
[2022-04-02 16:00] VITALS: BP 130/61
[2022-04-02 20:00] VITALS: BP 130/58
[2022-04-02] MEDS: MELATONIN 5 MG TABLET PO PRN (20:12)
[2022-04-02 20:16] LABS: GLUCOSE,POINT OF CARE 131 MG/DL (70-110)
[2022-04-03] VITALS: BP 144/65
[2022-04-03] MEDS: INSULIN LISPRO 100 UNITS/ML SQ PRN ×4 (00:17→23:57)
[2022-04-03] MEDS: RINGERS SOLUTION,LACTATED 1,000 ML IV SCH ×2 (01:55→17:00)
[2022-04-03] MEDS: ALBUMIN HUMAN 25%-12.5GM/50ML 50 ML IV SCH ×4 (01:55→20:35)
[2022-04-03 04:00] VITALS: BP 139/61
[2022-04-03] MEDS: DEXMEDETOMIDINE HCL 400 MCG in SODIUM CHLORIDE 0.9% 96 ML IV PRN (04:02)
[2022-04-03 06:01] LABS: GLUCOSE,POINT OF CARE 142 MG/DL (70-110)
[2022-04-03] MEDS: ETHYL ALCOHOL 62% ANTISEPTIC NASAL SANITIZER 0.6 ML AMPUL NASAL SCH ×2 (07:52→20:35)
[2022-04-03] MEDS: MULTIVITAMINS WITH MINERALS, THERAPEUTIC 15 ML UDCUP PEG SCH (07:53)
[2022-04-03] MEDS: MIDODRINE HCL 5 MG TABLET NG SCH ×2 (07:53→20:35)
[2022-04-03] MEDS: PANTOPRAZOLE SODIUM 40 MG/VIAL IVP SCH (07:53)
[2022-04-03] MEDS: DOCUSATE SODIUM 100 MG/10 ML LIQUID UDCUP GT SCH ×2 (07:53→20:35)
[2022-04-03] MEDS: QUEtiapine FUMARATE 25 MG TABLET PO SCH ×2 (07:54→20:35)
[2022-04-03] MEDS: LACTOBACILLUS ACIDOPHILUS/BULGARICUS GRANULES PACKET PO SCH ×2 (07:54→20:35)
[2022-04-03 08:00] VITALS: BP 131/63
[2022-04-03 08:51] LABS: CREATININE 1.76 mg/dL (0.60-1.30); POTASSIUM 3.3 mmol/L (3.5-5.1)
[2022-04-03 08:56] LABS: HEMATOCRIT 21.8 % (41-53); HEMOGLOBIN 7.3 g/dL (13.5-17.5); MEAN CORPUSCULAR HEMOGLOBIN 30.1 pg (26.0-34.0); MEAN CORPUSCULAR HGB CONC 33.4 G/dL (31.0-37.0); MEAN CORPUSCULAR VOLUME 90 fL (80-100); RED BLOOD CELL COUNT(AUTO) 2.41 MIL/uL (4.50-5.90); RED CELL DISTRIBUTION WIDTH 19.5 % (11.5-14.5)
[2022-04-03 09:03] LABS: PLATELET COUNT (AUTO) 30 K/uL (150-450)
[2022-04-03 09:29] LABS: BAND NEUTROPHILS % (MANUAL) 3 % (0-5); BLASTS, MANUAL % 16 (0-0); LYMPHOCYTES % (MANUAL) 68 % (22-44); MONOCYTES % (MANUAL) 5 % (2-9); SEGMENTED NEUTROPHILS % 8 % (40-70); WBC MORPHOLOGY SMUDGE CELLS PRESENT
[2022-04-03 12:00] VITALS: BP 139/61
[2022-04-03 12:16] LABS: GLUCOSE,POINT OF CARE 125 MG/DL (70-110)
[2022-04-03 12:16] LABS: GLUCOSE,POINT OF CARE 159 MG/DL (70-110)
[2022-04-03 16:00] VITALS: BP 115/51
[2022-04-03 20:00] VITALS: BP 137/67
[2022-04-03 21:21] LABS: GLUCOSE,POINT OF CARE 125 MG/DL (70-110)
[2022-04-04] VITALS: BP 157/99
[2022-04-04] MEDS: MELATONIN 5 MG TABLET PO PRN (00:28)
[2022-04-04] MEDS: ACETAMINOPHEN 325 MG TABLET PO PRN ×2 (00:34→12:14)
[2022-04-04] MEDS: DEXMEDETOMIDINE HCL 400 MCG in SODIUM CHLORIDE 0.9% 96 ML IV PRN ×2 (01:15→15:49)
[2022-04-04] MEDS: ALBUMIN HUMAN 25%-12.5GM/50ML 50 ML IV SCH ×4 (02:11→20:46)
[2022-04-04 04:00] VITALS: BP 149/66
[2022-04-04] MEDS: INSULIN LISPRO 100 UNITS/ML SQ PRN ×3 (06:31→18:24)
[2022-04-04 08:00] VITALS: BP 151/67
[2022-04-04 08:16] LABS: HEMATOCRIT 22.8 % (41-53); HEMOGLOBIN 7.5 g/dL (13.5-17.5); MEAN CORPUSCULAR HEMOGLOBIN 30.6 pg (26.0-34.0); MEAN CORPUSCULAR VOLUME 93 fL (80-100); PLATELET COUNT (AUTO) 27 K/uL (150-450); RED BLOOD CELL COUNT(AUTO) 2.45 MIL/uL (4.50-5.90); RED CELL DISTRIBUTION WIDTH 19.4 % (11.5-14.5)
[2022-04-04] MEDS: QUEtiapine FUMARATE 25 MG TABLET PO SCH ×2 (08:27→20:46)
[2022-04-04] MEDS: LACTOBACILLUS ACIDOPHILUS/BULGARICUS GRANULES PACKET PO SCH ×2 (08:27→20:46)
[2022-04-04] MEDS: MULTIVITAMINS WITH MINERALS, THERAPEUTIC 15 ML UDCUP PEG SCH (08:27)
[2022-04-04] MEDS: MIDODRINE HCL 5 MG TABLET NG SCH ×2 (08:28→20:46)
[2022-04-04] MEDS: FentaNYL 50 MCG/HOUR PATCH TD SCH (08:28)
[2022-04-04] MEDS: PANTOPRAZOLE SODIUM 40 MG/VIAL IVP SCH (08:28)
[2022-04-04] MEDS: ETHYL ALCOHOL 62% ANTISEPTIC NASAL SANITIZER 0.6 ML AMPUL NASAL SCH ×2 (08:28→20:46)
[2022-04-04] MEDS: DOCUSATE SODIUM 100 MG/10 ML LIQUID UDCUP GT SCH ×2 (08:29→20:47)
[2022-04-04 08:33] LABS: CALCIUM, TOTAL 8.2 mg/dL (8.8-10.5); CREATININE 1.95 mg/dL (0.60-1.30); MAGNESIUM 1.7 mg/dL (1.80-2.40); POTASSIUM 3.8 mmol/L (3.5-5.1)
[2022-04-04 09:21] LABS: BAND NEUTROPHILS % (MANUAL) 1 % (0-5); BLASTS, MANUAL % 17 (0-0); LYMPHOCYTES % (MANUAL) 65 % (22-44); MONOCYTES % (MANUAL) 6 % (2-9); SEGMENTED NEUTROPHILS % 11 % (40-70); WBC MORPHOLOGY SMUDGE CELLS PRESENT
[2022-04-04] MEDS: RINGERS SOLUTION,LACTATED 1,000 ML IV SCH (10:24)
[2022-04-04 11:11] LABS: GLUCOSE,POINT OF CARE 151 MG/DL (70-110)
[2022-04-04 11:12] LABS: GLUCOSE,POINT OF CARE 147 MG/DL (70-110)
[2022-04-04 12:00] VITALS: BP 140/58
[2022-04-04] MEDS ORDERED: MAGNESIUM SULFATE 1 GM in DEXTROSE 5%-WATER 50 ML IV ONE (15:45)
[2022-04-04 16:00] VITALS: BP 123/47
[2022-04-04 19:37] LABS: GLUCOSE,POINT OF CARE 126 MG/DL (70-110)
[2022-04-04 19:37] LABS: GLUCOSE,POINT OF CARE 121 MG/DL (70-110)
[2022-04-04 20:00] VITALS: BP 125/49
[2022-04-05] VITALS (11 sets, daily range): BP systolic 91–149; BP diastolic 42–109
[2022-04-05] MEDS: INSULIN LISPRO 100 UNITS/ML SQ PRN ×4 (00:11→23:58)
[2022-04-05] MEDS: MELATONIN 5 MG TABLET PO PRN ×2 (00:13→23:42)
[2022-04-05] MEDS ORDERED: SODIUM CHLORIDE 0.9% 250 ML IV ONE ×2 (01:47→12:00)
[2022-04-05] MEDS: RINGERS SOLUTION,LACTATED 1,000 ML IV SCH ×2 (02:07→17:46)
[2022-04-05] MEDS: ALBUMIN HUMAN 25%-12.5GM/50ML 50 ML IV SCH ×4 (02:07→20:19)
[2022-04-05 02:51] LABS: GLUCOSE,POINT OF CARE 136 MG/DL (70-110)
[2022-04-05 05:56] LABS: CREATININE 1.83 mg/dL (0.60-1.30); MAGNESIUM 1.8 mg/dL (1.80-2.40); POTASSIUM 3.9 mmol/L (3.5-5.1)
[2022-04-05 07:16] LABS: GLUCOSE,POINT OF CARE 103 MG/DL (70-110)
[2022-04-05] MEDS: DEXMEDETOMIDINE HCL 400 MCG in SODIUM CHLORIDE 0.9% 96 ML IV PRN ×2 (07:37→19:15)
[2022-04-05 08:12] LABS: MEAN CORPUSCULAR HEMOGLOBIN 30.1 pg (26.0-34.0); MEAN CORPUSCULAR VOLUME 94 fL (80-100); RED BLOOD CELL COUNT(AUTO) 2.18 MIL/uL (4.50-5.90); RED CELL DISTRIBUTION WIDTH 19.9 % (11.5-14.5)
[2022-04-05] MEDS: PANTOPRAZOLE SODIUM 40 MG/VIAL IVP SCH (08:21)
[2022-04-05] MEDS: DOCUSATE SODIUM 100 MG/10 ML LIQUID UDCUP GT SCH ×2 (08:22→21:18)
[2022-04-05] MEDS: QUEtiapine FUMARATE 25 MG TABLET PO SCH ×2 (08:22→21:19)
[2022-04-05] MEDS: MIDODRINE HCL 5 MG TABLET NG SCH ×2 (08:22→21:18)
[2022-04-05] MEDS: LACTOBACILLUS ACIDOPHILUS/BULGARICUS GRANULES PACKET PO SCH ×2 (08:22→21:18)
[2022-04-05] MEDS: MULTIVITAMINS WITH MINERALS, THERAPEUTIC 15 ML UDCUP PEG SCH (08:22)
[2022-04-05 08:52] LABS: HEMOGLOBIN 6.6 g/dL (13.5-17.5)
[2022-04-05 08:53] LABS: HEMATOCRIT 20.5 % (41-53)
[2022-04-05 08:54] LABS: PLATELET COUNT (AUTO) 14 K/uL (150-450)
[2022-04-05 09:06] LABS: BAND NEUTROPHILS % (MANUAL) 0 % (0-5)
[2022-04-05 12:56] LABS: GLUCOSE,POINT OF CARE 133 MG/DL (70-110)
[2022-04-05 13:09] LABS: BLASTS, MANUAL % 23 (0-0); LYMPHOCYTES % (MANUAL) 61 % (22-44); MONOCYTES % (MANUAL) 4 % (2-9); REACTIVE LYMPHOCYTES 5 % (0-0); SEGMENTED NEUTROPHILS % 7 % (40-70)
[2022-04-05] MEDS: ACETAMINOPHEN 325 MG TABLET PO PRN ×2 (15:35→23:42)
[2022-04-05 15:45] LABS: HEMATOCRIT 26.2 % (41-53); HEMOGLOBIN 8.7 g/dL (13.5-17.5)
[2022-04-05 17:27] LABS: LACTIC ACID 0.9 mmol/L (0.4-2.0)
[2022-04-05] MEDS: PIPERACILLIN SODIUM/TAZOBACTAM 2.25 GM in DEXTROSE 5%-WATER 50 ML IV SCH (20:19)
[2022-04-05 21:06] LABS: GLUCOSE,POINT OF CARE 208 MG/DL (70-110)
[2022-04-06] VITALS: BP 105/44
[2022-04-06] MEDS: PIPERACILLIN SODIUM/TAZOBACTAM 2.25 GM in DEXTROSE 5%-WATER 50 ML IV SCH ×2 (02:02→08:09)
[2022-04-06] MEDS: ALBUMIN HUMAN 25%-12.5GM/50ML 50 ML IV SCH ×2 (02:02→08:09)
[2022-04-06] MEDS: DEXMEDETOMIDINE HCL 400 MCG in SODIUM CHLORIDE 0.9% 96 ML IV PRN ×2 (02:56→12:00)
[2022-04-06 04:00] VITALS: BP 154/70
[2022-04-06] MEDS: INSULIN LISPRO 100 UNITS/ML SQ PRN ×2 (05:47→13:01)
[2022-04-06 08:00] VITALS: BP 168/88
[2022-04-06 08:07] LABS: GLUCOSE,POINT OF CARE 218 MG/DL (70-110)
[2022-04-06 08:07] LABS: GLUCOSE,POINT OF CARE 217 MG/DL (70-110)
[2022-04-06] MEDS: MULTIVITAMINS WITH MINERALS, THERAPEUTIC 15 ML UDCUP PEG SCH (08:09)
[2022-04-06] MEDS: PANTOPRAZOLE SODIUM 40 MG/VIAL IVP SCH (08:09)
[2022-04-06] MEDS: QUEtiapine FUMARATE 25 MG TABLET PO SCH (08:09)
[2022-04-06] MEDS: MIDODRINE HCL 5 MG TABLET NG SCH (08:09)
[2022-04-06] MEDS: LACTOBACILLUS ACIDOPHILUS/BULGARICUS GRANULES PACKET PO SCH (08:10)
[2022-04-06] MEDS: DOCUSATE SODIUM 100 MG/10 ML LIQUID UDCUP GT SCH (08:10)
[2022-04-06] MEDS ORDERED: LORazepam 2 MG/ML VIAL IVP PRN (11:00)
[2022-04-06 12:00] VITALS: BP 148/68
[2022-04-06] MEDS: RINGERS SOLUTION,LACTATED 1,000 ML IV SCH (12:32)
[2022-04-07 01:16] LABS: GLUCOSE,POINT OF CARE 205 MG/DL (70-110)
== END 2022-04-06 13:45 | DRG 4 ==
LOC: EMS 08:33 → ICU 10:03 → 5S 03-14 11:15 → ICU 03-16 01:20
PROVIDERS: ADMIT Internal Medicine; ATTEND Hospitalist
PROC: 5A1955Z Respiratory Ventilation, Greater than 96 Consecutive Hours (ICD-10-PCS; principal; 2022-03-01)
PROC: 0BH17EZ Insertion of Endotracheal Airway into Trachea, Via Natural or Artificial Opening (ICD-10-PCS; 2022-03-01)
PROC: 30233N1 Transfusion of Nonautologous Red Blood Cells into Peripheral Vein, Percutaneous Approach (ICD-10-PCS; 2022-03-01)
PROC: 06HY33Z Insertion of Infusion Device into Lower Vein, Percutaneous Approach (ICD-10-PCS; 2022-03-01)
PROC: B54BZZA Ultrasonography of Right Lower Extremity Veins, Guidance (ICD-10-PCS; 2022-03-01)
PROC: 0BH17EZ Insertion of Endotracheal Airway into Trachea, Via Natural or Artificial Opening (ICD-10-PCS; 2022-03-01)
PROC: 5A1955Z Respiratory Ventilation, Greater than 96 Consecutive Hours (ICD-10-PCS; 2022-03-01)
PROC: 05H933Z Insertion of Infusion Device into Right Brachial Vein, Percutaneous Approach (ICD-10-PCS; 2022-03-08)
PROC: 05HA33Z Insertion of Infusion Device into Left Brachial Vein, Percutaneous Approach (ICD-10-PCS; 2022-03-22)
PROC: 0BJ08ZZ Inspection of Tracheobronchial Tree, Via Natural or Artificial Opening Endoscopic (ICD-10-PCS; 2022-03-30)
PROC: 30233R1 Transfusion of Nonautologous Platelets into Peripheral Vein, Percutaneous Approach (ICD-10-PCS; 2022-03-30)
PROC: 0B113F4 Bypass Trachea to Cutaneous with Tracheostomy Device, Percutaneous Approach (ICD-10-PCS; 2022-04-02)
DX: A41.9 Sepsis, unspecified organism (principal); J96.01 Acute respiratory failure with hypoxia; E43 Unspecified severe protein-calorie malnutrition; J69.0 Pneumonitis due to inhalation of food and vomit; R65.21 Severe sepsis with septic shock; J15.6 Pneumonia due to other Gram-negative bacteria; J91.0 Malignant pleural effusion; C91.10 Chronic lymphocytic leukemia of B-cell type not having achieved remission; J98.11 Atelectasis; R18.8 Other ascites; T17.890A Other foreign object in other parts of respiratory tract causing asphyxiation, initial encounter; Z99.11 Dependence on respirator [ventilator] status; D63.8 Anemia in other chronic diseases classified elsewhere; D69.6 Thrombocytopenia, unspecified; E87.6 Hypokalemia; Z20.822 Contact with and (suspected) exposure to COVID-19; F41.9 Anxiety disorder, unspecified; I50.9 Heart failure, unspecified; Z66 Do not resuscitate; R13.10 Dysphagia, unspecified; R73.9 Hyperglycemia, unspecified; X58.XXXA Exposure to other specified factors, initial encounter; Z87.01 Personal history of pneumonia (recurrent); Z79.899 Other long term (current) drug therapy; Y93.89 Activity, other specified; Y92.89 Other specified places as the place of occurrence of the external cause; Y99.8 Other external cause status
CPT/HCPCS: 31500; 31624; 36245; 36569; 36600; 51702; 70450; 71045; 71250; 76937; 80048; 80053; 81001; 81002; 81003; 82805; 82945; 82962; 83605; 83615; 83735; 83880; 84100; 84132; 84145; 84157; 84300; 84484; 84540; 85014; 85018; 85025; 85610; 85730; 86850; 86900; 86901; 86923; 87040; 87070; 87081; 87086; 87184; 87205; 87324; 87449; 88108; 88112; 88185; 88189; 88305; 88312; 89051; 92526; 92610; 93005; 93970; 94002; 94003; 94640; 94660; 97162; 97167; 97535; 99291; C9113; G0378; J0330; J0713; J1644; J1940; J1956; J2060; J2250; J2270; J2370; J2543; J2704; J3475; J3480; J3490; J7030; J7040; J7050; J7060; J7120; P9016; P9035; P9047; Q9967; 36415-L1; 36415-TC; J7613; U0003